=== PATIENT | female | born 1995 | race Caucasian/White ===

== ENCOUNTER → 2017-01-02 | Outpatient (CLI) | payer OTHER ==
--- NOTE | 2017-01-02 08:54 | REP ---
RIGHT HAND, FOUR VIEWS: There is no evidence of an acute fracture, dislocation or intrinsic bone disease. IMPRESSION: No fracture or dislocation. Signed by Adolfo Hansen MD 01/02/2017 10:13 A
== END ==
LOC: M WUC 08:17
PROVIDERS: ATTEND Physician Assistant Medical
DX: S60.011A Contusion of right thumb without damage to nail, initial encounter (principal); X58.XXXA Exposure to other specified factors, initial encounter; Y92.89 Other specified places as the place of occurrence of the external cause; Y93.89 Activity, other specified; Y99.8 Other external cause status

== ENCOUNTER 2017-07-18 11:14 | Emergency (ER) | payer OTHER ==
[~2017-07-18] VITALS: Ht 154.9 cm; Wt 84.1 kg
[2017-07-18 11:14] VITALS: BP 129/88
[2017-07-18] MEDS ORDERED: NEXP1IMP SC (11:29)
[2017-07-18] MEDS ORDERED: AMIT50TA (11:29)
[2017-07-18] MEDS ORDERED: DIVA500T3 (11:29)
[2017-07-18] MEDS ORDERED: SUMA6INJ16 (11:29)
[2017-07-18] MEDS ORDERED: ULTR50TA8 PO (13:25)
== END 2017-07-18 13:38 | disposition home or self-care (01) ==
LOC: M ED 11:14
DX: S06.0X0A Concussion without loss of consciousness, initial encounter (principal); W50.0XXA Accidental hit or strike by another person, initial encounter; Y92.219 Unspecified school as the place of occurrence of the external cause; Y93.45 Activity, cheerleading; Y99.9 Unspecified external cause status; G43.909 Migraine, unspecified, not intractable, without status migrainosus; Z79.899 Other long term (current) drug therapy

== ENCOUNTER 2018-07-14 14:30 | Emergency (ER) | payer OTHER | END 2018-07-14 19:24 | disposition home or self-care (01) | LOC: M ED 14:30 | DX: S83.402A Sprain of unspecified collateral ligament of left knee, initial encounter (principal); X58.XXXA Exposure to other specified factors, initial encounter; Y92.89 Other specified places as the place of occurrence of the external cause; Z79.3 Long term (current) use of hormonal contraceptives; Z88.8 Allergy status to other drugs, medicaments and biological substances | CPT/HCPCS: 73564 ==

== ENCOUNTER 2018-08-11 08:27 | Outpatient (RCR) | payer BC | END 2018-08-27 | LOC: M PT 08:27 | DX: Z47.89 Encounter for other orthopedic aftercare (principal); M25.569 Pain in unspecified knee | CPT/HCPCS: 97110 ==

== ENCOUNTER → 2018-08-15 | Outpatient (REF) | payer BC ==
[2018-08-15 17:41] LABS: HEMATOCRIT 39.4 % (36.0-47.0); HEMOGLOBIN 13.3 g/dl (12.0-15.5); MEAN CORPUSCULAR HEMOGLOBIN 29.5 pg (27.0-33.0); MEAN CORPUSCULAR HGB CONC 33.8 g/dl (32.0-36.5); MEAN CORPUSCULAR VOLUME 87.4 fl (80.0-96.0); PLATELET COUNT, AUTOMATED 263 10^3/uL (150-450); RED BLOOD COUNT 4.51 10^6/uL (4.00-5.40); RED CELL DISTRIBUTION WIDTH 12.9 % (11.5-14.5); WHITE BLOOD COUNT 6.8 10^3/uL (4.0-10.0)
[2018-08-15 18:05] LABS: INR 1.01; PROTHROMBIN TIME 13.4 SECONDS (12.1-14.4)
[2018-08-15 18:06] LABS: PARTIAL THROMBOPLASTIN TIME 40.3 SECONDS (25.4-37.6)
== END ==
LOC: M LAB REF 16:32
DX: D68.0 Von Willebrand disease (principal)
CPT/HCPCS: 85610

== ENCOUNTER → 2018-08-19 | Outpatient (CLI) | payer BC ==
[2018-08-19 15:10] LABS: PARTIAL THROMBOPLASTIN TIME 37.4 SECONDS (25.4-37.6)
== END ==
LOC: M LAB 14:23
DX: D68.0 Von Willebrand disease (principal)
CPT/HCPCS: 85730

== ENCOUNTER → 2018-08-20 | Outpatient (CLI) | payer BC | LOC: M PAIN 09:15 | DX: M54.81 Occipital neuralgia (principal); M54.2 Cervicalgia; J45.909 Unspecified asthma, uncomplicated; G43.909 Migraine, unspecified, not intractable, without status migrainosus; D68.0 Von Willebrand disease; Z79.899 Other long term (current) drug therapy; Z88.8 Allergy status to other drugs, medicaments and biological substances; Z91.038 Other insect allergy status; Z87.820 Personal history of traumatic brain injury; Z86.69 Personal history of other diseases of the nervous system and sense organs | CPT/HCPCS: G0463 ==

== ENCOUNTER 2018-08-28 13:54 | Outpatient (RCR) | payer BC | END 2018-09-26 | LOC: M PT 09-02 16:00 | DX: M25.562 Pain in left knee (principal) ==

== ENCOUNTER → 2018-09-05 | Outpatient (CLI) | payer BC ==
[~2018-09-05] MED LIST: BUPIVACAINE HCL 0.25% 10 ML VIAL As Ordered; BUPIVACAINE HCL 0.25% 30 ML VIAL As Ordered; TRIAMCINOLONE ACETONIDE SUSP 40 MG/ML VIAL (J3301) As Ordered; diazePAM 5 MG TAB As Ordered; oxyCODONE 5MG TAB As Ordered
== END ==
LOC: M PAIN 09:15
DX: G89.29 Other chronic pain (principal); M54.81 Occipital neuralgia; J45.909 Unspecified asthma, uncomplicated; G43.909 Migraine, unspecified, not intractable, without status migrainosus; D68.0 Von Willebrand disease; Z79.899 Other long term (current) drug therapy; Z88.0 Allergy status to penicillin; Z91.038 Other insect allergy status; Z87.820 Personal history of traumatic brain injury
CPT/HCPCS: J3301

== ENCOUNTER → 2018-10-16 | Outpatient (CLI) | payer BC ==
[~2018-10-16] MED LIST changes: +AMIT50TA; -BUPIVACAINE HCL 0.25% 10 ML VIAL As Ordered; -BUPIVACAINE HCL 0.25% 30 ML VIAL As Ordered; +DIVA500T94; +NEXP1IMP SC; +REGL10TA6 PO; +SUMA100T2 PO; +SUMA6INJ16; -TRIAMCINOLONE ACETONIDE SUSP 40 MG/ML VIAL (J3301) As Ordered; +ULTR50TA8 PO; +ZONI50CA3; -diazePAM 5 MG TAB As Ordered; -oxyCODONE 5MG TAB As Ordered
--- NOTE | 2018-11-12 00:24 | ECWPNPC ---
PATIENT NAME: MONET LEDEZMA : 1995 GENDER: FEMALE VISIT DATE: 10/16/2018 DISCHARGE DATE: 10/16/18 1002 VISIT LOCKED DATE TIME: PHYSICIAN: IMAN GURROLA RESOURCE: IMAN GURROLA REASON FOR APPOINTMENT 1. PROCEDURE F/U HISTORY OF PRESENT ILLNESS HISTORY OF PRESENT ILLNESS: HERE FOR POST PROCEDURE F/U.HAD RIGHT GREATER OCCIPITAL BLOCK ON 09-05-18.REPORTED SIGNIFICANT IMPROVEMENT IN PAIN FOR >2 WEEKS POST PROCEDURE.PAIN IS BEGINING TO RETURN TO BASELINE.RATING PAIN VAS 3/10.HISTORY OF CHRONIC RIGHT NECK PAIN.THIS STEMS FROM A CHEERLEADING INJURY 2 YEARS AGO.ALSO SUFFERS FROM CHRONIC MIGRAINE WHICH ESCALATED AFTER INJURY. PAIN THE PATIENT DESCRIBES THE PAIN... FALL RISK SCREENING: SCREENING :NO FALLS IN THE PAST YEAR CURRENT MEDICATIONS TAKING AMITRIPTYLINE HCL 75 MG TABLET 1 TABLET AT BEDTIME ORALLY ONCE A DAY TAKING NEXPLANON 68 MG IMPLANT LEFT ARM SUBCUTANEOUS IMPLANTED 07/2015 TAKING IMITREX 6 MG/0.5ML SOLUTION 0.5 ML NEEDED SUBCUTANEOUS NEEDED TAKING ZONISAMIDE 50 MG CAPSULE 1 CAPSULE ORALLY THREE TIMES DAILY TAKING TRAMADOL HCL 50 MG TABLET 1 TABLET NEEDED ORALLY EVERY 6 HRS TAKING ALBUTEROL SULFATE HFA 108 (90 BASE) MCG/ACT AEROSOL SOLUTION 2 PUFFS NEEDED INHALATION EVERY 6 HRS TAKING TYLENOL 325 MG TABLET 1 TABLET NEEDED ORALLY EVERY 4 HRS NOT-TAKING IBUPROFEN 800 MG TABLET 1 TABLET WITH FOOD OR MILK NEEDED ORALLY NEEDED NOT-TAKING DIAZEPAM 5 MG TABLET 1 TABLET NEEDED ORALLY TAKE 1 TAB ONE HOUR PRIOR TO TEST, AND 1 TAB ON ARRIVA MDD=2L NOT-TAKING DEPAKOTE 500 MG TABLET DELAYED RELEASE 1 TABLET ORALLY ONCE A DAY NOT-TAKING ADVAIR DISKUS 250-50 MCG/DOSE AEROSOL POWDER BREATH ACTIVATED 1 PUFF INHALATION TWICE A DAY MEDICATION LIST REVIEWED AND RECONCILED WITH THE PATIENT PAST MEDICAL HISTORY ASTHMA MIGRAINE SEES NESANDRA HAD MRI NO AURA SYNCOPAL EPISODES - STABLE COCUSSION LAST JUN VON WILLIEBRANDS ALLERGIES TORADOL: BURNING IN HEAD: SIDE EFFECTS SPIDER BITES: LOCAL SWELLING: SIDE EFFECTS SURGICAL HISTORY REMOVAL EXTRA DIGITS EACH HAND AGE 3 MO T&A AGE 7 WISDOM TEETH REMOVED 2015 LEFT KNEE BONE FRAGMENT REMOVED 08/2018 SOCIAL HISTORY GENERAL: TOBACCO USE ARE YOU A:NONSMOKER NEVER SMOKER BMI CARE GOAL FOLLOW-UP ABOVE NORMAL BMI FOLLOW-UPGIVING ENCOURAGEMENT TO EXERCISE ALCOHOL SCREENING DID YOU HAVE A DRINK CONTAINING ALCOHOL IN THE PAST YEAR?YES HOW OFTEN DID YOU HAVE A DRINK CONTAINING ALCOHOL IN THE PAST YEAR?TWO TO FOUR TIMES A MONTH (2 POINTS) HOW MANY DRINKS DID YOU HAVE ON A TYPICAL DAY WHEN YOU WERE DRINKING IN THE PAST YEAR?1 OR 2 (0 POINTS) HOW OFTEN DID YOU HAVE SIX OR MORE DRINKS ON ONE OCCASION IN THE PAST YEAR?NEVER (0 POINTS) POINTS2 INTERPRETATIONNEGATIVE RECREATIONAL DRUG USE DRUG USE?NO CAFFEINE CAFFEINE USE?YES HOW OFTEN AND HOW MUCH? 1 SODA 12 OZ LANGUAGE SOUTH AFR[place]. LEARNING BARRIERS / SPECIAL NEEDS CHANGE FROM LAST VISIT?NO BARRIERS TO LEARNING?NO HEARING IMPAIRED?NO VISION IMPAIRED?YES :CORRECTIVE LENSES COGNITIVELY IMPAIRED?NO READINESS TO LEARN?YES LEARNING PREFERENCES?NO LEARNING CAPABILITIES PRESENT?YES EMOTIONAL BARRIERS?NO SPECIAL DEVICES?NO OPERATIONS ASSOCIATE NEEDED?NO MARITAL STATUS: SINGLE. OTHERS AT HOME: FATHER, MOTHER. PAIN CLINIC PFS, CLERGY, PUBLIC HEALTH REFERRALS PFS REFERRAL NEEDED?NO CLERGY REFERRAL NEEDED?NO PUBLIC HEALTH REFERRAL NEEDED?NO HAS THE PATIENT BEEN EDUCATED REGARDING HIS/HER PLAN OF CARE?YES HAS THE PATIENT BEEN EDUCATED REGARDING PAIN, THE RISK FOR PAIN, THE IMPORTANCE OF EFFECTIVE PAIN MANAGEMENT, AND THE PAIN ASSESSMENT PROCESS?YES ADVANCE DIRECTIVE ADVANCE DIRECTIVE DISCUSSED WITH PATIENT:YES MACHO LAUVIRIDIANATORSTEN [phone] HOSPITALIZATION/MAJOR DIAGNOSTIC PROCEDURE DEHYDRATION 2002 ASTHMA 2005 REVIEW OF SYSTEMS REVIEWED BY: PROVIDER: IMAN GARZA . CONSTITUTIONAL: ANY CHANGE IN YOUR MEDICAL CONDITION? YES, NEGATIVE WORK UP FOR [place] DISEASE . CHILLS NO . FEVER NO . INFECTION: DO YOU HAVE NEW INFECTIONS? NO . DO YOU HAVE HISTORY OF MRSA? NO . MUSCULOSKELETAL: ANY NEW PATTERNS OF PAIN OR NUMBNESS? NO . GASTROENTEROLOGY: ANY NEW CHANGE IN BOWEL CONTROL? NO . GENITOURINARY: ANY NEW CHANGE IN BLADDER CONTROL? NO . IS THERE A CHANCE YOU COULD BE ? NO . HEMATOLOGY/LYMPH: DO YOU TAKE ANY BLOOD THINNERS? (FOR EXAMPLE- COUMADIN, PLAVIX, AGGRENOX, PLATEL, PRADAXA, OR XARELTO) NO . WHEN WAS YOUR LAST DOSE? DATE: TIME: . NEUROLOGY: HAVE YOU FALLEN IN THE PAST 6 MONTHS? YES, LAST WEEK SLIPPED AND FELL ON ICE, PT DENIES INJURIES . ANY NEW EXTREMITY NUMBNESS OR WEAKNESS? NO . CARDIOLOGY: DO YOU HAVE A PACEMAKER OR DEFIBRILLATOR? NO . RESPIRATORY: HAVE YOU BEEN SICK IN THE PAST WEEK? NO . FEVER NO . FLU LIKE SYMPTOMS? NO . COUGH NO . INTEGUMENTARY: DO YOU HAVE ANY RASHES OR OPEN SORES? NO . ALLERGIC/IMMUNO: ARE YOU ALLERGIC TO SHELLFISH OR IV DYE? NO . ANY NEW ALLERGIES? NO . PSYCHIATRIC: DO YOU HAVE THOUGHTS OF HURTING YOURSELF OR SOMEONE ELSE? NO . ARE YOU ABUSED, NEGLECTED, OR IN AN UNSAFE ENVIRONMENT? NO . ENDOCRINOLOGY: ARE YOU DIABETIC? NO . OTHER: DO YOU NEED ANY PRESCRIPTIONS? NO . IF YES, PLEASE LIST: ____ . ANY NEW PROBLEMS WITH YOUR MEDICATIONS? NO . WHEN DID YOU LAST EAT? ____ . WHEN DID YOU LAST DRINK? ____ . WHAT DID YOU LAST DRINK? ____ . NAME OF PERSON DRIVING YOU HOME? ____ . DO YOU HAVE ANY OTHER QUESTIONS OR CONCERNS NO . VITAL SIGNS WT 192 LBS, HT 62 IN, BMI 35.11 INDEX, BP 122/81 MM HG, HR 88 /MIN, RR 16 /MIN, TEMP 98.7 F, OXYGEN SAT % 98, REVIEWED BY: EM. EXAMINATION GENERAL EXAMINATION: GENERAL APPEARANCE:COLOR PALE. PSYCHALERT , ORIENTED X 3 , APPROPRIATE MOOD AND AFFECT , TALKATIVE. GOOD HISTORIAN. HEENT:NORMOCEPHALIC. NO LYMPHADENOPATHY, NO THYROMEGLY. LUNGS:CLEAR TO AUSCULTATION BILATERALLY. HEART:HEART RATE REGULAR, NORMAL S1S2, NO MURMURS, CLICK OR RUBS. MUSCULOSKELETAL:MUSCLE STRENGTH TESTING 5/5 BILATERAL UPPER AND LOWER EXTREMITIES. POINT TENDERNESS OVER RIGHT > LEFT OCCIPITAL NOTCH AND OVER THE RIGHT OCCIPUT TO THE VERTEX. SOME DECREASE IN ROM WITH NECK ROTATION, FLEXION. . NEUROLOGIC EXAM:CN'S II-XII GROSSLY INTACT.. 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 PROCEDURE CODES FA211 ESTABILISHED PATIENT [facility] FACILITY CHARGE DISPOSITION & COMMUNICATION FOLLOW UP POST (REASON: RIGHT OCCIPITAL BLOCK) ELECTRONICALLY SIGNED BY KAYLA WYMAN ON 11/11/2018 AT 08:50 AM EST DISCLAIMER : THIS IS A VISIT SUMMARY EXTRACTED FROM THE [employer] CHART. IT IS NOT A COPY OF THE [employer] PROGRESS NOTE. JUAREZ
== END ==
LOC: M PAIN 11:30
PROVIDERS: ATTEND Nurse Practitioner Family
DX: M54.81 Occipital neuralgia (principal); J45.909 Unspecified asthma, uncomplicated; G43.909 Migraine, unspecified, not intractable, without status migrainosus; E66.01 Morbid (severe) obesity due to excess calories; Z68.35 Body mass index [BMI] 35.0-35.9, adult; Z79.899 Other long term (current) drug therapy; Z88.8 Allergy status to other drugs, medicaments and biological substances; Z91.038 Other insect allergy status

== ENCOUNTER → 2018-10-30 | Outpatient (CLI) | payer BC ==
[~2018-10-30] MED LIST changes: +BUPIVACAINE HCL 0.25% 10 ML VIAL As Ordered ONE; +BUPIVACAINE HCL 0.25% 30 ML VIAL As Ordered ONE; +TRIAMCINOLONE ACETONIDE SUSP 40 MG/ML VIAL (J3301) As Ordered ONE; +diazePAM 5 MG TAB As Ordered ONE; +oxyCODONE 5MG TAB As Ordered ONE
--- NOTE | 2018-11-15 23:24 | ECWPNPC ---
PATIENT NAME: MONET LEDEZMA : 1995 GENDER: FEMALE VISIT DATE: 10/30/2018 DISCHARGE DATE: 10/30/18 1731 VISIT LOCKED DATE TIME: PHYSICIAN: MADDI RICHARD MD RESOURCE: MADDI RICHARD MD REASON FOR APPOINTMENT 1. RIGHT OCCIPITAL BLOCK HISTORY OF PRESENT ILLNESS HISTORY OF PRESENT ILLNESS: PAIN THE PATIENT DESCRIBES THE PAIN... FALL RISK SCREENING: SCREENING :NO FALLS IN THE PAST YEAR CURRENT MEDICATIONS TAKING AMITRIPTYLINE HCL 75 MG TABLET 1 TABLET AT BEDTIME ORALLY ONCE A DAY, NOTES: 10/29/18 2100 TAKING NEXPLANON 68 MG IMPLANT LEFT ARM SUBCUTANEOUS IMPLANTED 07/2015, NOTES: N/A TAKING IMITREX 6 MG/0.5ML SOLUTION 0.5 ML NEEDED SUBCUTANEOUS NEEDED, NOTES: NONE LATELY TAKING ZONISAMIDE 50 MG CAPSULE 1 CAPSULE ORALLY THREE TIMES DAILY, NOTES: 10/30/18 0800 TAKING TRAMADOL HCL 50 MG TABLET 1 TABLET NEEDED ORALLY EVERY 6 HRS, NOTES: 10/26/18 TAKING ALBUTEROL SULFATE HFA 108 (90 BASE) MCG/ACT AEROSOL SOLUTION 2 PUFFS NEEDED INHALATION EVERY 6 HRS, NOTES: LAST MONTH TAKING TYLENOL 325 MG TABLET 1 TABLET NEEDED ORALLY EVERY 4 HRS, NOTES: 10/27/18 NOT-TAKING IBUPROFEN 800 MG TABLET 1 TABLET WITH FOOD OR MILK NEEDED ORALLY NEEDED NOT-TAKING DIAZEPAM 5 MG TABLET 1 TABLET NEEDED ORALLY TAKE 1 TAB ONE HOUR PRIOR TO TEST, AND 1 TAB ON ARRIVA MDD=2L NOT-TAKING DEPAKOTE 500 MG TABLET DELAYED RELEASE 1 TABLET ORALLY ONCE A DAY NOT-TAKING ADVAIR DISKUS 250-50 MCG/DOSE AEROSOL POWDER BREATH ACTIVATED 1 PUFF INHALATION TWICE A DAY MEDICATION LIST REVIEWED AND RECONCILED WITH THE PATIENT PAST MEDICAL HISTORY ASTHMA MIGRAINE SEES VINCENT HAD MRI NO AURA SYNCOPAL EPISODES - STABLE COCUSSION LAST JUN VON WILLIEBRANDS ALLERGIES TORADOL: BURNING IN HEAD: SIDE EFFECTS SPIDER BITES: LOCAL SWELLING: SIDE EFFECTS SURGICAL HISTORY REMOVAL EXTRA DIGITS EACH HAND AGE 3 MO T&A AGE 7 WISDOM TEETH REMOVED 2015 LEFT KNEE BONE FRAGMENT REMOVED 08/2018 SOCIAL HISTORY GENERAL: TOBACCO USE ARE YOU A:NONSMOKER NEVER SMOKER BMI CARE GOAL FOLLOW-UP ABOVE NORMAL BMI FOLLOW-UPGIVING ENCOURAGEMENT TO EXERCISE ALCOHOL SCREENING DID YOU HAVE A DRINK CONTAINING ALCOHOL IN THE PAST YEAR?YES HOW OFTEN DID YOU HAVE A DRINK CONTAINING ALCOHOL IN THE PAST YEAR?TWO TO FOUR TIMES A MONTH (2 POINTS) HOW MANY DRINKS DID YOU HAVE ON A TYPICAL DAY WHEN YOU WERE DRINKING IN THE PAST YEAR?1 OR 2 (0 POINTS) HOW OFTEN DID YOU HAVE SIX OR MORE DRINKS ON ONE OCCASION IN THE PAST YEAR?NEVER (0 POINTS) POINTS2 INTERPRETATIONNEGATIVE RECREATIONAL DRUG USE DRUG USE?NO CAFFEINE CAFFEINE USE?YES HOW OFTEN AND HOW MUCH? 1 SODA 12 OZ LANGUAGE ISRAELI. LEARNING BARRIERS / SPECIAL NEEDS CHANGE FROM LAST VISIT?NO BARRIERS TO LEARNING?NO HEARING IMPAIRED?NO VISION IMPAIRED?YES :CORRECTIVE LENSES COGNITIVELY IMPAIRED?NO READINESS TO LEARN?YES LEARNING PREFERENCES?NO LEARNING CAPABILITIES PRESENT?YES EMOTIONAL BARRIERS?NO SPECIAL DEVICES?NO MANAGER STEEL NEEDED?NO MARITAL STATUS: SINGLE. OTHERS AT HOME: FATHER, MOTHER. PAIN CLINIC PFS, CLERGY, PUBLIC HEALTH REFERRALS PFS REFERRAL NEEDED?NO CLERGY REFERRAL NEEDED?NO PUBLIC HEALTH REFERRAL NEEDED?NO HAS THE PATIENT BEEN EDUCATED REGARDING HIS/HER PLAN OF CARE?YES HAS THE PATIENT BEEN EDUCATED REGARDING PAIN, THE RISK FOR PAIN, THE IMPORTANCE OF EFFECTIVE PAIN MANAGEMENT, AND THE PAIN ASSESSMENT PROCESS?YES ADVANCE DIRECTIVE ADVANCE DIRECTIVE DISCUSSED WITH PATIENT:YES MACHO SHRESTHARENETTATORSTEN [phone] HOSPITALIZATION/MAJOR DIAGNOSTIC PROCEDURE DEHYDRATION 2002 ASTHMA 2005 REVIEW OF SYSTEMS REVIEWED BY: PROVIDER: . CONSTITUTIONAL: ANY CHANGE IN YOUR MEDICAL CONDITION? NO . CHILLS NO . FEVER NO . INFECTION: DO YOU HAVE NEW INFECTIONS? NO . DO YOU HAVE HISTORY OF MRSA? NO . MUSCULOSKELETAL: ANY NEW PATTERNS OF PAIN OR NUMBNESS? NO . GASTROENTEROLOGY: ANY NEW CHANGE IN BOWEL CONTROL? NO . GENITOURINARY: ANY NEW CHANGE IN BLADDER CONTROL? NO . IS THERE A CHANCE YOU COULD BE ? NO . HEMATOLOGY/LYMPH: DO YOU TAKE ANY BLOOD THINNERS? (FOR EXAMPLE- COUMADIN, PLAVIX, AGGRENOX, PLATEL, PRADAXA, OR XARELTO) NO . WHEN WAS YOUR LAST DOSE? DATE: TIME: . NEUROLOGY: HAVE YOU FALLEN IN THE PAST 6 MONTHS? NO . ANY NEW EXTREMITY NUMBNESS OR WEAKNESS? NO . CARDIOLOGY: DO YOU HAVE A PACEMAKER OR DEFIBRILLATOR? NO . RESPIRATORY: HAVE YOU BEEN SICK IN THE PAST WEEK? NO . FEVER NO . FLU LIKE SYMPTOMS? NO . COUGH NO . INTEGUMENTARY: DO YOU HAVE ANY RASHES OR OPEN SORES? NO . ALLERGIC/IMMUNO: ARE YOU ALLERGIC TO SHELLFISH OR IV DYE? NO . ANY NEW ALLERGIES? NO . PSYCHIATRIC: DO YOU HAVE THOUGHTS OF HURTING YOURSELF OR SOMEONE ELSE? NO . ARE YOU ABUSED, NEGLECTED, OR IN AN UNSAFE ENVIRONMENT? NO . ENDOCRINOLOGY: ARE YOU DIABETIC? NO . OTHER: DO YOU NEED ANY PRESCRIPTIONS? NO . IF YES, PLEASE LIST: ____ . ANY NEW PROBLEMS WITH YOUR MEDICATIONS? NO . WHEN DID YOU LAST EAT? 10/29/18 2100 . WHEN DID YOU LAST DRINK? 10/30/18 1200 . WHAT DID YOU LAST DRINK? WATER . NAME OF PERSON DRIVING YOU HOME? ALHAJI . DO YOU HAVE ANY OTHER QUESTIONS OR CONCERNS NO . VITAL SIGNS WT 192 LBS, HT 62 IN, BMI 35.11 INDEX, BP 122/84 MM HG, HR 82 /MIN, RR 16 /MIN, TEMP 97.8 F, OXYGEN SAT % 99%, NA INITIALS SC 13:55, REVIEWED BY: EM. 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 POST PROCEDURE DIAGNOSIS OCCIPITAL NEURALGIA. PROCEDURE RIGHT GREATER AND LESSER OCCIPITAL NERVE BLOCK. SURGEON DR. MADDI RICHARD CONSULTING PROJECT DIRECTOR NONE ANESTHESIA LOCAL PRE PROCEDURE NOTE 23 YEAR-OLD PATIENT WITH HISTORY OF CHRONIC OCCIPITAL PAIN. THE PAIN IS LOCATED OVER THE OCCIPITAL AREA WITH RADIATION TOWARDS THE TEMPORAL AREA AND ALSO TO THE PARIETAL AREA OF THE CRANIUM. I EVALUATED THE PATIENT AND REVIEWED THE CHART. I WENT OVER THE RISKS, ALTERNATIVES, AND BENEFITS ASSOCIATED WITH THIS PROCEDURE. THE PATIENT WOULD LIKE TO PROCEED AND GAVE CONSENT TO PERFORM THE PROCEDURE. THE PATIENT DENIES UNEXPLAINABLE WEIGHT LOSS, FEVER, CHILLS, OR NEW CHANGES IN URINARY OR BOWEL CONTROL. DESCRIPTION OF PROCEDURE THE PATIENT WAS BROUGHT TO THE PROCEDURE ROOM AND PLACED IN THE SITTING POSITION. THE RIGHT OCCIPITAL AREA WAS CLEANED WITH ALCOHOL. THE PROCEDURE WAS DONE USING STERILE TECHNIQUES. I CHECKED LATERALITY AND THE LEVEL WHERE THE PROCEDURE WAS GOING TO BE PERFORMED WITH THE PATIENT AND THE SUPPORTING STAFF AT THE MOMENT OF THE TIME OUT IN THE PROCEDURE ROOM. USING A 25-GAUGE NEEDLE, THE OCCIPITAL NERVES, BOTH THE GREATER AND THE LESSER WERE INJECTED AT THE RIGHT SIDE AT THE NUCHAL LINE, THE GREATER 1-INCH LATERAL OF MIDLINE AND THE LESSER 1-1/2 INCH LATERAL OF THE MIDLINE. I USED A TOTAL OF 10 ML OF BUPIVACAINE 0.25% WITH KENALOG 10 MG AT EACH NERVE. THERE WAS NO EVIDENCE OF BLOOD, PARESTHESIA OR CEREBROSPINAL FLUID DURING THE PROCEDURE. THE PATIENT WAS SENT TO THE RECOVERY ROOM. THE PATIENT WAS MOVING THE EXTREMITIES AND DOING WELL. THERE WAS NO COMPLICATION DURING THE PROCEDURE. POST PROCEDURE NOTE THE PATIENT WILL BE SEEN IN A FOLLOW UP IN THE NEXT FEW WEEKS. INSTRUCTIONS WERE GIVEN, QUESTIONS WERE ANSWERED, AND THE PATIENT EXPRESSED UNDERSTANDING AND AGREED WITH THE PLAN. I, FREDRICK DAMON, DOCUMENTED THE ABOVE INFORMATION ACTING A SCRIBE FOR DR. RICHARD. I HAVE REVIEWED THE ABOVE DOCUMENT, WRITTEN BY FREDRICK COTE AND I VERIFY THAT IT IS ACCURATE. PROCEDURE CODES 20320 N BLOCK INJ OCCIPITAL, UNITS: 2.00 , MODIFIERS: RT DISPOSITION & COMMUNICATION FOLLOW UP 3 WEEKS ELECTRONICALLY SIGNED BY MADDI RICHARD MD, ON 11/15/2018 AT 09:07 PM EST DISCLAIMER : THIS IS A VISIT SUMMARY EXTRACTED FROM THE [employer] CHART. IT IS NOT A COPY OF THE [employer] PROGRESS NOTE. JUAREZ
== END ==
LOC: M PAIN 16:15
PROVIDERS: ATTEND Anesthesiology
DX: M54.81 Occipital neuralgia (principal); J45.909 Unspecified asthma, uncomplicated; G43.909 Migraine, unspecified, not intractable, without status migrainosus; D68.0 Von Willebrand disease; E66.01 Morbid (severe) obesity due to excess calories; Z68.35 Body mass index [BMI] 35.0-35.9, adult; Z79.899 Other long term (current) drug therapy; Z88.8 Allergy status to other drugs, medicaments and biological substances; Z91.038 Other insect allergy status; Z86.79 Personal history of other diseases of the circulatory system
CPT/HCPCS: 64405; J3301

== ENCOUNTER → 2018-11-25 | Outpatient (CLI) | payer BC ==
[~2018-11-25] MED LIST changes: -BUPIVACAINE HCL 0.25% 10 ML VIAL As Ordered ONE; -BUPIVACAINE HCL 0.25% 30 ML VIAL As Ordered ONE; -TRIAMCINOLONE ACETONIDE SUSP 40 MG/ML VIAL (J3301) As Ordered ONE; -diazePAM 5 MG TAB As Ordered ONE; -oxyCODONE 5MG TAB As Ordered ONE
--- NOTE | 2018-12-07 23:51 | ECWPNPC ---
PATIENT NAME: MONET LEDEZMA : 1995 GENDER: FEMALE VISIT DATE: 11/25/2018 DISCHARGE DATE: 11/25/18 1040 VISIT LOCKED DATE TIME: PHYSICIAN: IMAN GURROLA RESOURCE: IMAN GURROLA REASON FOR APPOINTMENT 1. POST PROC HISTORY OF PRESENT ILLNESS HISTORY OF PRESENT ILLNESS: HERE FOR POST PROCEDURE F/U.HAD RIGHT GREATER AND LESSER OCCIPITAL NERVE BLOCK ON 10/30/18.REPORTING ONLY 1 WEEK IMPROVEMENT POST PROCEDURE.RATING RIGHT NECK PAIN 5/10 VAS.REPORTS A FALL INJURY LAST WEEK THAT AGGREVATED RIGHT NECK PAIN.HAS BEEN USING CYCLOBENZAPRINE 10MG 1/2 TO 1 TAB PRN FOR SEVERE PAIN WITH RELIEF. PAIN THE PATIENT DESCRIBES THE PAIN... FALL RISK SCREENING: SCREENING :NO FALLS IN THE PAST YEAR CURRENT MEDICATIONS TAKING AMITRIPTYLINE HCL 75 MG TABLET 1 TABLET AT BEDTIME ORALLY ONCE A DAY TAKING NEXPLANON 68 MG IMPLANT LEFT ARM SUBCUTANEOUS IMPLANTED 07/2015, NOTES: N/A TAKING IMITREX 6 MG/0.5ML SOLUTION 0.5 ML NEEDED SUBCUTANEOUS NEEDED TAKING ZONISAMIDE 50 MG CAPSULE 1 CAPSULE ORALLY THREE TIMES DAILY TAKING TRAMADOL HCL 50 MG TABLET 1 TABLET NEEDED ORALLY EVERY 6 HRS TAKING ALBUTEROL SULFATE HFA 108 (90 BASE) MCG/ACT AEROSOL SOLUTION 2 PUFFS NEEDED INHALATION EVERY 6 HRS TAKING TYLENOL 325 MG TABLET 1 TABLET NEEDED ORALLY EVERY 4 HRS TAKING CYCLOBENZAPRINE HCL 10 MG TABLET 1/2-1 TAB ORALLY Q6H PRN PAIN NOT-TAKING IBUPROFEN 800 MG TABLET 1 TABLET WITH FOOD OR MILK NEEDED ORALLY NEEDED NOT-TAKING DIAZEPAM 5 MG TABLET 1 TABLET NEEDED ORALLY TAKE 1 TAB ONE HOUR PRIOR TO TEST, AND 1 TAB ON ARRIVA MDD=2L NOT-TAKING DEPAKOTE 500 MG TABLET DELAYED RELEASE 1 TABLET ORALLY ONCE A DAY NOT-TAKING ADVAIR DISKUS 250-50 MCG/DOSE AEROSOL POWDER BREATH ACTIVATED 1 PUFF INHALATION TWICE A DAY MEDICATION LIST REVIEWED AND RECONCILED WITH THE PATIENT PAST MEDICAL HISTORY ASTHMA MIGRAINE SEES VINCENT HAD MRI NO AURA SYNCOPAL EPISODES - STABLE COCUSSION LAST JUN VON WILLIEBRANDS ALLERGIES TORADOL: BURNING IN HEAD: SIDE EFFECTS SPIDER BITES: LOCAL SWELLING: SIDE EFFECTS SURGICAL HISTORY REMOVAL EXTRA DIGITS EACH HAND AGE 3 MO T&A AGE 7 WISDOM TEETH REMOVED 2015 LEFT KNEE BONE FRAGMENT REMOVED 08/2018 FAMILY HISTORY FATHER: ALIVE 60 YRS, HEMOPHLIIA MOTHER: ALIVE 61 YRS, HTN, DIAGNOSED WITH HYPERTENSION SIBLINGS: BROTHERS ALCOHOLISM 2 BROTHER(S) , 1 SISTER(S) - HEALTHY. SOCIAL HISTORY GENERAL: TOBACCO USE ARE YOU A:NONSMOKER NEVER SMOKER BMI CARE GOAL FOLLOW-UP ABOVE NORMAL BMI FOLLOW-UPGIVING ENCOURAGEMENT TO EXERCISE ALCOHOL SCREENING DID YOU HAVE A DRINK CONTAINING ALCOHOL IN THE PAST YEAR?YES HOW OFTEN DID YOU HAVE A DRINK CONTAINING ALCOHOL IN THE PAST YEAR?TWO TO FOUR TIMES A MONTH (2 POINTS) HOW MANY DRINKS DID YOU HAVE ON A TYPICAL DAY WHEN YOU WERE DRINKING IN THE PAST YEAR?1 OR 2 (0 POINTS) HOW OFTEN DID YOU HAVE SIX OR MORE DRINKS ON ONE OCCASION IN THE PAST YEAR?NEVER (0 POINTS) POINTS2 INTERPRETATIONNEGATIVE RECREATIONAL DRUG USE DRUG USE?NO CAFFEINE CAFFEINE USE?YES HOW OFTEN AND HOW MUCH? 1 SODA 12 OZ LANGUAGE GAMBIAN. LEARNING BARRIERS / SPECIAL NEEDS CHANGE FROM LAST VISIT?NO BARRIERS TO LEARNING?NO HEARING IMPAIRED?NO VISION IMPAIRED?YES :CORRECTIVE LENSES COGNITIVELY IMPAIRED?NO READINESS TO LEARN?YES LEARNING PREFERENCES?NO LEARNING CAPABILITIES PRESENT?YES EMOTIONAL BARRIERS?NO SPECIAL DEVICES?NO FUEL MANAGEMENT HANDLER NEEDED?NO MARITAL STATUS: SINGLE. OTHERS AT HOME: FATHER, MOTHER. PAIN CLINIC PFS, CLERGY, PUBLIC HEALTH REFERRALS PFS REFERRAL NEEDED?NO CLERGY REFERRAL NEEDED?NO PUBLIC HEALTH REFERRAL NEEDED?NO HAS THE PATIENT BEEN EDUCATED REGARDING HIS/HER PLAN OF CARE?YES HAS THE PATIENT BEEN EDUCATED REGARDING PAIN, THE RISK FOR PAIN, THE IMPORTANCE OF EFFECTIVE PAIN MANAGEMENT, AND THE PAIN ASSESSMENT PROCESS?YES ADVANCE DIRECTIVE ADVANCE DIRECTIVE DISCUSSED WITH PATIENT:YES MACHO AGUIRRE [phone] REVIEWED WITH PATIENT 11/25/18 0935 . HOSPITALIZATION/MAJOR DIAGNOSTIC PROCEDURE DEHYDRATION 2001 ASTHMA 2004 REVIEW OF SYSTEMS REVIEWED BY: PROVIDER: IAMN GARZA . CONSTITUTIONAL: ANY CHANGE IN YOUR MEDICAL CONDITION? NO . CHILLS NO . FEVER NO . INFECTION: DO YOU HAVE NEW INFECTIONS? NO . DO YOU HAVE HISTORY OF MRSA? NO . MUSCULOSKELETAL: ANY NEW PATTERNS OF PAIN OR NUMBNESS? YES, STATES INCREASE IN PAIN AND FREQUENCY OF MIGRAINES . GASTROENTEROLOGY: ANY NEW CHANGE IN BOWEL CONTROL? NO . GENITOURINARY: ANY NEW CHANGE IN BLADDER CONTROL? NO . IS THERE A CHANCE YOU COULD BE ? NO . HEMATOLOGY/LYMPH: DO YOU TAKE ANY BLOOD THINNERS? (FOR EXAMPLE- COUMADIN, PLAVIX, AGGRENOX, PLATEL, PRADAXA, OR XARELTO) NO . WHEN WAS YOUR LAST DOSE? DATE: TIME: . NEUROLOGY: HAVE YOU FALLEN IN THE PAST 12 MONTHS? YES, SLIP ON ICE LAST SATURDAY, BACK AND NECK HURTING MORE, NO ED VISIT, NO NEW IMAGING . ANY NEW EXTREMITY NUMBNESS OR WEAKNESS? NO . CARDIOLOGY: DO YOU HAVE A PACEMAKER OR DEFIBRILLATOR? NO . RESPIRATORY: HAVE YOU BEEN SICK IN THE PAST WEEK? NO . FEVER NO . FLU LIKE SYMPTOMS? NO . COUGH NO . INTEGUMENTARY: DO YOU HAVE ANY RASHES OR OPEN SORES? NO . ALLERGIC/IMMUNO: ARE YOU ALLERGIC TO IV DYE? NO . ANY NEW ALLERGIES? NO . PSYCHIATRIC: DO YOU HAVE THOUGHTS OF HURTING YOURSELF OR SOMEONE ELSE? NO . ARE YOU ABUSED, NEGLECTED, OR IN AN UNSAFE ENVIRONMENT? NO . ENDOCRINOLOGY: ARE YOU DIABETIC? NO . OTHER: DO YOU NEED ANY PRESCRIPTIONS? NO . IF YES, PLEASE LIST: ____ . ANY NEW PROBLEMS WITH YOUR MEDICATIONS? NO . WHEN DID YOU LAST EAT? ____ . WHEN DID YOU LAST DRINK? ____ . WHAT DID YOU LAST DRINK? ____ . NAME OF PERSON DRIVING YOU HOME? ____ . DO YOU HAVE ANY OTHER QUESTIONS OR CONCERNS NO . VITAL SIGNS WT 192 LBS, HT 62 IN, BMI 35.11 INDEX, BP 130/76 MM HG, HR 78 /MIN, RR 16 /MIN, TEMP 97.5 F, OXYGEN SAT % 100%, SAFE IN ENV? (Y/N) YES, NA INITIALS OH 09:41, REVIEWED BY: NICOLE. EXAMINATION GENERAL EXAMINATION: GENERAL APPEARANCE:COLOR PALE. PSYCHALERT , ORIENTED X 3 , APPROPRIATE MOOD AND AFFECT , TALKATIVE. GOOD HISTORIAN. MUSCULOSKELETAL:MUSCLE STRENGTH TESTING 5/5 BILATERAL UPPER AND LOWER EXTREMITIES. POINT TENDERNESS OVER RIGHT OCCIPITAL NOTCH AND OVER THE RIGHT OCCIPITAL NERVE. . 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 PREVENTIVE MEDICINE PAIN CLINIC TEACHING: PROCEDURE TEACHING REVIEWED OCCIPITAL BLOCK PROCEDURE INFORMATION WITH PATIENT. ALSO REVIEWED PRE-PROCEDURE INSTRUCTIONS. PATIENT VERBALIZED AN UNDERSTANDING. MELISSA TAFOYA 11/25/2018 4:49:23 PM > . PROCEDURE CODES FA211 ESTABILISHED PATIENT [facility] CHARGE DISPOSITION & COMMUNICATION FOLLOW UP POST (REASON: RIGHT GREATER OCCIPITAL BLOCK) ELECTRONICALLY SIGNED BY KAYLA WYMAN ON 12/07/2018 AT 02:37 PM EST DISCLAIMER : THIS IS A VISIT SUMMARY EXTRACTED FROM THE [employer] CHART. IT IS NOT A COPY OF THE [employer] PROGRESS NOTE. JUAREZ
== END ==
LOC: M PAIN 10:00
PROVIDERS: ATTEND Nurse Practitioner Family
DX: M54.81 Occipital neuralgia (principal); J45.909 Unspecified asthma, uncomplicated; G43.909 Migraine, unspecified, not intractable, without status migrainosus; D68.0 Von Willebrand disease; Z79.899 Other long term (current) drug therapy; Z88.8 Allergy status to other drugs, medicaments and biological substances; Z91.038 Other insect allergy status

== ENCOUNTER → 2018-12-03 | Outpatient (CLI) | payer BC ==
[~2018-12-03] MED LIST changes: +BUPIVACAINE HCL 0.25% 10 ML VIAL As Ordered ONE; +BUPIVACAINE HCL 0.25% 30 ML VIAL As Ordered ONE; +TRIAMCINOLONE ACETONIDE SUSP 40 MG/ML VIAL (J3301) As Ordered ONE; +diazePAM 5 MG TAB As Ordered ONE; +oxyCODONE 5MG TAB As Ordered ONE
--- NOTE | 2018-12-13 23:26 | ECWPNPC ---
PATIENT NAME: MONET LEDEZMA : 1995 GENDER: FEMALE VISIT DATE: 12/03/2018 DISCHARGE DATE: 12/03/18 1619 VISIT LOCKED DATE TIME: PHYSICIAN: MADDI RICHARD MD RESOURCE: MADDI RICHARD MD REASON FOR APPOINTMENT 1. OCCIPITAL HISTORY OF PRESENT ILLNESS HISTORY OF PRESENT ILLNESS: PAIN THE PATIENT DESCRIBES THE PAIN... FALL RISK SCREENING: SCREENING :NO FALLS IN THE PAST YEAR CURRENT MEDICATIONS TAKING AMITRIPTYLINE HCL 75 MG TABLET 1 TABLET AT BEDTIME ORALLY ONCE A DAY, NOTES: 12/02/18 2300 TAKING NEXPLANON 68 MG IMPLANT LEFT ARM SUBCUTANEOUS IMPLANTED 07/2015, NOTES: N/A TAKING IMITREX 6 MG/0.5ML SOLUTION 0.5 ML NEEDED SUBCUTANEOUS NEEDED, NOTES: NONE RECENTLY TAKING ZONISAMIDE 50 MG CAPSULE 1 CAPSULE ORALLY THREE TIMES DAILY, NOTES: 12/03/18 0730 TAKING TRAMADOL HCL 50 MG TABLET 1 TABLET NEEDED ORALLY EVERY 6 HRS, NOTES: 11/30/18 TAKING ALBUTEROL SULFATE HFA 108 (90 BASE) MCG/ACT AEROSOL SOLUTION 2 PUFFS NEEDED INHALATION EVERY 6 HRS, NOTES: MONTHS AGO TAKING CYCLOBENZAPRINE HCL 10 MG TABLET 1/2-1 TAB ORALLY Q6H PRN PAIN, NOTES: 2 WEEKS AGO TAKING ARTHRITIS PAIN 650 MG TABLET EXTENDED RELEASE 2 TABLETS NEEDED ORALLY EVERY 8 HRS, NOTES: 12/01/18 NOT-TAKING TYLENOL 325 MG TABLET 1 TABLET NEEDED ORALLY EVERY 4 HRS NOT-TAKING IBUPROFEN 800 MG TABLET 1 TABLET WITH FOOD OR MILK NEEDED ORALLY NEEDED NOT-TAKING DIAZEPAM 5 MG TABLET 1 TABLET NEEDED ORALLY TAKE 1 TAB ONE HOUR PRIOR TO TEST, AND 1 TAB ON ARRIVA MDD=2L NOT-TAKING DEPAKOTE 500 MG TABLET DELAYED RELEASE 1 TABLET ORALLY ONCE A DAY NOT-TAKING ADVAIR DISKUS 250-50 MCG/DOSE AEROSOL POWDER BREATH ACTIVATED 1 PUFF INHALATION TWICE A DAY MEDICATION LIST REVIEWED AND RECONCILED WITH THE PATIENT PAST MEDICAL HISTORY ASTHMA MIGRAINE SEES VINCENT HAD MRI NO AURA SYNCOPAL EPISODES - STABLE CONCUSSION LAST JUN 2017 HEMOPHILIA A CARRIER ONLY DISLOCATED KNEE LEFT 06/2018 ALLERGIES TORADOL: BURNING IN HEAD: SIDE EFFECTS SPIDER BITES: LOCAL SWELLING: SIDE EFFECTS SURGICAL HISTORY REMOVAL EXTRA DIGITS EACH HAND AGE 3 MO T&A AGE 7 WISDOM TEETH REMOVED 2015 LEFT KNEE BONE FRAGMENT REMOVED 08/2018 FAMILY HISTORY FATHER: ALIVE 60 YRS, HEMOPHILIA MOTHER: ALIVE 61 YRS, HTN, BREAST CANCER, DIAGNOSED WITH HYPERTENSION, CANCER SIBLINGS: BROTHERS ALCOHOLISM, 1 SISTER AGE 6 WEEKS SIDS 2 BROTHER(S) , 2 SISTER(S) - HEALTHY. SOCIAL HISTORY GENERAL: TOBACCO USE ARE YOU A:NONSMOKER NEVER SMOKER BMI CARE GOAL FOLLOW-UP ABOVE NORMAL BMI FOLLOW-UPGIVING ENCOURAGEMENT TO EXERCISE ALCOHOL SCREENING DID YOU HAVE A DRINK CONTAINING ALCOHOL IN THE PAST YEAR?YES HOW OFTEN DID YOU HAVE A DRINK CONTAINING ALCOHOL IN THE PAST YEAR?TWO TO FOUR TIMES A MONTH (2 POINTS) HOW MANY DRINKS DID YOU HAVE ON A TYPICAL DAY WHEN YOU WERE DRINKING IN THE PAST YEAR?1 OR 2 (0 POINTS) HOW OFTEN DID YOU HAVE SIX OR MORE DRINKS ON ONE OCCASION IN THE PAST YEAR?NEVER (0 POINTS) POINTS2 INTERPRETATIONNEGATIVE RECREATIONAL DRUG USE DRUG USE?NO CAFFEINE CAFFEINE USE?YES HOW OFTEN AND HOW MUCH? 1 SODA 12 OZ [facility] [id number] NONE LANGUAGE FRENCH. 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 MARITAL STATUS: SINGLE. OTHERS AT HOME: FATHER, MOTHER. PAIN CLINIC PFS, CLERGY, PUBLIC HEALTH REFERRALS PFS REFERRAL NEEDED?NO CLERGY REFERRAL NEEDED?NO PUBLIC HEALTH REFERRAL NEEDED?NO HAS THE PATIENT BEEN EDUCATED REGARDING HIS/HER PLAN OF CARE?YES HAS THE PATIENT BEEN EDUCATED REGARDING PAIN, THE RISK FOR PAIN, THE IMPORTANCE OF EFFECTIVE PAIN MANAGEMENT, AND THE PAIN ASSESSMENT PROCESS?YES ADVANCE DIRECTIVE ADVANCE DIRECTIVE DISCUSSED WITH PATIENT:YES MACHO SHRESTHARENETTATORSTEN [phone] REVIEWED WITH PATIENT 11/25/18 0935 SJ. HOSPITALIZATION/MAJOR DIAGNOSTIC PROCEDURE DEHYDRATION 2002 ASTHMA 2005 SURGERY 05/1995 REVIEW OF SYSTEMS REVIEWED BY: PROVIDER: . CONSTITUTIONAL: ANY CHANGE IN YOUR MEDICAL CONDITION? NO . CHILLS NO . FEVER NO . INFECTION: DO YOU HAVE NEW INFECTIONS? NO . DO YOU HAVE HISTORY OF MRSA? NO . MUSCULOSKELETAL: ANY NEW PATTERNS OF PAIN OR NUMBNESS? NO . GASTROENTEROLOGY: ANY NEW CHANGE IN BOWEL CONTROL? NO . GENITOURINARY: ANY NEW CHANGE IN BLADDER CONTROL? NO . IS THERE A CHANCE YOU COULD BE ? NO . HEMATOLOGY/LYMPH: DO YOU TAKE ANY BLOOD THINNERS? (FOR EXAMPLE- COUMADIN, PLAVIX, AGGRENOX, PLATEL, PRADAXA, OR XARELTO) NO . WHEN WAS YOUR LAST DOSE? DATE: TIME: . NEUROLOGY: HAVE YOU FALLEN IN THE PAST 12 MONTHS? NO . ANY NEW EXTREMITY NUMBNESS OR WEAKNESS? NO . CARDIOLOGY: DO YOU HAVE A PACEMAKER OR DEFIBRILLATOR? NO . RESPIRATORY: HAVE YOU BEEN SICK IN THE PAST WEEK? NO . FEVER NO . FLU LIKE SYMPTOMS? NO . COUGH NO . INTEGUMENTARY: DO YOU HAVE ANY RASHES OR OPEN SORES? NO . ALLERGIC/IMMUNO: ARE YOU ALLERGIC TO IV DYE? NO . ANY NEW ALLERGIES? NO . PSYCHIATRIC: DO YOU HAVE THOUGHTS OF HURTING YOURSELF OR SOMEONE ELSE? NO . ARE YOU ABUSED, NEGLECTED, OR IN AN UNSAFE ENVIRONMENT? NO . ENDOCRINOLOGY: ARE YOU DIABETIC? NO . OTHER: DO YOU NEED ANY PRESCRIPTIONS? NO . IF YES, PLEASE LIST: ____ . ANY NEW PROBLEMS WITH YOUR MEDICATIONS? NO . WHEN DID YOU LAST EAT? 12/02/18 1900 . WHEN DID YOU LAST DRINK? 12/03/18 1130 . WHAT DID YOU LAST DRINK? WATER . NAME OF PERSON DRIVING YOU HOME? BILL OR ALHAJI . DO YOU HAVE ANY OTHER QUESTIONS OR CONCERNS NO . VITAL SIGNS WT 192 LBS, HT 62 IN, BMI 35.11 INDEX, BP 139/90 MM HG, HR 89 /MIN, RR 16 /MIN, TEMP 97.9 F, OXYGEN SAT % 99%, NA INITIALS AW 1339, REVIEWED BY: EM. 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 MADDI RICHARD MACHINE LEAD BURNER NONE ANESTHESIA LOCAL PRE PROCEDURE NOTE PATIENT WITH A HISTORY OF CHRONIC OCCIPITAL PAIN. THE PAIN IS LOCATED OVER THE OCCIPITAL AREA WITH RADIATION TOWARDS THE PARIETAL AREA OF THE CRANIUM. I EVALUATED THE PATIENT AND REVIEWED THE CHART. I WENT OVER THE RISKS, ALTERNATIVES, AND BENEFITS ASSOCIATED WITH THIS PROCEDURE. THE PATIENT WOULD LIKE TO PROCEED AND GAVE CONSENT TO PERFORM THE PROCEDURE. THE PATIENT DENIES UNEXPLAINABLE WEIGHT LOSS, FEVER, CHILLS, OR NEW CHANGES IN URINARY OR BOWEL CONTROL DESCRIPTION OF PROCEDURE THE PATIENT WAS BROUGHT TO THE PROCEDURE ROOM AND PLACED IN THE SITTING POSITION. THE RIGHT OCCIPITAL AREA WAS CLEANED WITH ALCOHOL. THE PROCEDURE WAS DONE USING STERILE TECHNIQUES. I CHECKED LATERALITY AND THE LEVEL WHERE THE PROCEDURE WAS GOING TO BE PERFORMED WITH THE PATIENT AND THE SUPPORTING STAFF AT THE MOMENT OF THE TIME OUT IN THE PROCEDURE ROOM. USING A 25-GAUGE NEEDLE, THE RIGHT OCCIPITAL NERVE WAS INJECTED AT THE NUCHAL LINE, 1-INCH LATERAL OF MIDLINE. I USED A TOTAL OF 15 ML OF BUPIVACAINE 0.25% WITH KENALOG 20 MG AT EACH NERVE. THERE WAS NO EVIDENCE OF BLOOD, PARESTHESIA OR CEREBROSPINAL FLUID DURING THE PROCEDURE. THE PATIENT WAS SENT TO THE RECOVERY ROOM. THE PATIENT WAS MOVING THE EXTREMITIES AND DOING WELL. THERE WAS NO COMPLICATION DURING THE PROCEDURE POST PROCEDURE NOTE THE PATIENT WILL BE SEEN IN A FOLLOW UP IN THE NEXT FEW WEEKS. INSTRUCTIONS WERE GIVEN, QUESTIONS WERE ANSWERED, AND THE PATIENT EXPRESSED UNDERSTANDING AND AGREED WITH THE PLAN. PROCEDURE CODES 47936 N BLOCK INJ OCCIPITAL, MODIFIERS: RT DISPOSITION & COMMUNICATION FOLLOW UP 6 WEEKS ELECTRONICALLY SIGNED BY MADDI RICHARD MD, MD ON 12/13/2018 AT 07:06 PM EST DISCLAIMER : THIS IS A VISIT SUMMARY EXTRACTED FROM THE [employer] CHART. IT IS NOT A COPY OF THE [employer] PROGRESS NOTE. JUAREZ
== END ==
LOC: M PAIN 13:45
PROVIDERS: ATTEND Anesthesiology
DX: M54.81 Occipital neuralgia (principal); J45.909 Unspecified asthma, uncomplicated; G43.909 Migraine, unspecified, not intractable, without status migrainosus; Z79.899 Other long term (current) drug therapy; Z91.038 Other insect allergy status; Z88.8 Allergy status to other drugs, medicaments and biological substances
CPT/HCPCS: 64405; J3301

== ENCOUNTER 2018-12-18 13:29 | Emergency (ER) | payer BC ==
[~2018-12-18] VITALS: Ht 157.5 cm; Wt 81.8 kg
[~2018-12-18 13:29] MED LIST changes: -AMIT50TA; +AMIT50TA PO; -BUPIVACAINE HCL 0.25% 10 ML VIAL As Ordered ONE; -BUPIVACAINE HCL 0.25% 30 ML VIAL As Ordered ONE; -TRIAMCINOLONE ACETONIDE SUSP 40 MG/ML VIAL (J3301) As Ordered ONE; -ZONI50CA3; +ZONI50CA3 PO; -diazePAM 5 MG TAB As Ordered ONE; -oxyCODONE 5MG TAB As Ordered ONE
[2018-12-18] MEDS ORDERED: ACE65ERTAB PO (13:37)
[2018-12-18] MEDS ORDERED: NS 1,000 ML IV ONE (14:00)
[2018-12-18] MEDS ORDERED: METOCLOPRAMIDE INJ 10MG/2ML VIAL (J2765) IV ONE (14:00)
[2018-12-18] MEDS ORDERED: ACETAMINOPHEN TAB 650MG DOSE (2X325MG) PO ONE (14:00)
[2018-12-18] MEDS ORDERED: diphenhydrAMINE INJ 50MG/ML VIAL (J1200) IV ONE (14:00)
[2018-12-18 16:12] VITALS: BP 123/71
== END 2018-12-18 16:14 | disposition home or self-care (01) ==
LOC: M ED 13:29
DX: G43.909 Migraine, unspecified, not intractable, without status migrainosus (principal); J45.909 Unspecified asthma, uncomplicated; Z14.01 Asymptomatic hemophilia A carrier; Z79.899 Other long term (current) drug therapy; Z88.8 Allergy status to other drugs, medicaments and biological substances
CPT/HCPCS: 96374; 96375; 99284; J1200; J2765

== ENCOUNTER → 2019-01-07 | Outpatient (CLI) | payer BC ==
[~2019-01-07] MED LIST changes: +ACE65ERTAB PO
--- NOTE | 2019-01-23 01:28 | ECWPNPC ---
PATIENT NAME: MONET LEDEZMA : 1995 GENDER: FEMALE VISIT DATE: 01/07/2019 DISCHARGE DATE: 01/07/19 1030 VISIT LOCKED DATE TIME: PHYSICIAN: IMAN GURROLA RESOURCE: IMAN GURROLA REASON FOR APPOINTMENT 1. NECK/POST PROC HISTORY OF PRESENT ILLNESS HISTORY OF PRESENT ILLNESS: HERE FOR POST PROCEDURE F/U.HAD GREATER OCCIPITAL -RIGHT ON 12/03/18.STATES INJECTION HELPED SIGNIFICANTLY.IS GRADUALLY RETURNING TO BASELINE.RATING PAIN VAS 3/10. PAIN THE PATIENT DESCRIBES THE PAIN... FALL RISK SCREENING: SCREENING : NO FALLS IN THE PAST YEAR. CURRENT MEDICATIONS TAKING AMITRIPTYLINE HCL 75 MG TABLET 1 TABLET AT BEDTIME ORALLY ONCE A DAY TAKING NEXPLANON 68 MG IMPLANT LEFT ARM SUBCUTANEOUS IMPLANTED 07/2015 TAKING IMITREX 6 MG/0.5ML SOLUTION 0.5 ML NEEDED SUBCUTANEOUS NEEDED TAKING ZONISAMIDE 50 MG CAPSULE 1 CAPSULE ORALLY THREE TIMES DAILY TAKING TRAMADOL HCL 50 MG TABLET 1 TABLET NEEDED ORALLY EVERY 6 HRS TAKING ALBUTEROL SULFATE HFA 108 (90 BASE) MCG/ACT AEROSOL SOLUTION 2 PUFFS NEEDED INHALATION EVERY 6 HRS TAKING CYCLOBENZAPRINE HCL 10 MG TABLET 1/2-1 TAB ORALLY Q6H PRN PAIN TAKING ARTHRITIS PAIN 650 MG TABLET EXTENDED RELEASE 2 TABLETS NEEDED ORALLY EVERY 8 HRS NOT-TAKING TYLENOL 325 MG TABLET 1 TABLET NEEDED ORALLY EVERY 4 HRS NOT-TAKING IBUPROFEN 800 MG TABLET 1 TABLET WITH FOOD OR MILK NEEDED ORALLY NEEDED NOT-TAKING DIAZEPAM 5 MG TABLET 1 TABLET NEEDED ORALLY TAKE 1 TAB ONE HOUR PRIOR TO TEST, AND 1 TAB ON ARRIVA MDD=2L NOT-TAKING DEPAKOTE 500 MG TABLET DELAYED RELEASE 1 TABLET ORALLY ONCE A DAY NOT-TAKING ADVAIR DISKUS 250-50 MCG/DOSE AEROSOL POWDER BREATH ACTIVATED 1 PUFF INHALATION TWICE A DAY MEDICATION LIST REVIEWED AND RECONCILED WITH THE PATIENT PAST MEDICAL HISTORY ASTHMA MIGRAINE SEES VINCENT HAD MRI NO AURA SYNCOPAL EPISODES - STABLE CONCUSSION LAST JUN 2017 HEMOPHILIA A CARRIER ONLY DISLOCATED KNEE LEFT 06/2018 ALLERGIES TORADOL: BURNING IN HEAD - SIDE EFFECTS SPIDER BITES: LOCAL SWELLING - SIDE EFFECTS SURGICAL HISTORY REMOVAL EXTRA DIGITS EACH HAND AGE 3 MO T&A AGE 7 WISDOM TEETH REMOVED 2015 LEFT KNEE BONE FRAGMENT REMOVED 08/2018 FAMILY HISTORY FATHER: ALIVE 60 YRS, HEMOPHILIA MOTHER: ALIVE 61 YRS, HTN, BREAST CANCER, DIAGNOSED WITH HYPERTENSION, CANCER SIBLINGS: BROTHERS ALCOHOLISM, 1 SISTER AGE 6 WEEKS SIDS 2 BROTHER(S) , 2 SISTER(S) - HEALTHY. SOCIAL HISTORY GENERAL: TOBACCO USE ARE YOU A:NONSMOKER NEVER SMOKER BMI CARE GOAL FOLLOW-UP ABOVE NORMAL BMI FOLLOW-UPGIVING ENCOURAGEMENT TO EXERCISE ALCOHOL SCREENING DID YOU HAVE A DRINK CONTAINING ALCOHOL IN THE PAST YEAR?YES HOW OFTEN DID YOU HAVE A DRINK CONTAINING ALCOHOL IN THE PAST YEAR?TWO TO FOUR TIMES A MONTH (2 POINTS) HOW MANY DRINKS DID YOU HAVE ON A TYPICAL DAY WHEN YOU WERE DRINKING IN THE PAST YEAR?1 OR 2 (0 POINTS) HOW OFTEN DID YOU HAVE SIX OR MORE DRINKS ON ONE OCCASION IN THE PAST YEAR?NEVER (0 POINTS) POINTS2 INTERPRETATIONNEGATIVE RECREATIONAL DRUG USE DRUG USE?NO CAFFEINE CAFFEINE USE?YES HOW OFTEN AND HOW MUCH? 1 SODA 12 OZ BUDDHISM [id number] NONE LANGUAGE [place]OREAN. 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 MARITAL STATUS: SINGLE. OTHERS AT HOME: FATHER, MOTHER. PAIN CLINIC PFS, CLERGY, PUBLIC HEALTH REFERRALS PFS REFERRAL NEEDED?NO CLERGY REFERRAL NEEDED?NO PUBLIC HEALTH REFERRAL NEEDED?NO HAS THE PATIENT BEEN EDUCATED REGARDING HIS/HER PLAN OF CARE?YES HAS THE PATIENT BEEN EDUCATED REGARDING PAIN, THE RISK FOR PAIN, THE IMPORTANCE OF EFFECTIVE PAIN MANAGEMENT, AND THE PAIN ASSESSMENT PROCESS?YES ADVANCE DIRECTIVE ADVANCE DIRECTIVE DISCUSSED WITH PATIENT:YES MACHO SHRESTHARENETTATORSTEN [phone] REVIEWED WITH PATIENT 11/25/18 0935 SJ. HOSPITALIZATION/MAJOR DIAGNOSTIC PROCEDURE DEHYDRATION 2002 ASTHMA 2005 SURGERY 05/1995 REVIEW OF SYSTEMS REVIEWED BY: PROVIDER: IMAN GARZA . CONSTITUTIONAL: ANY CHANGE IN YOUR MEDICAL CONDITION? NO . CHILLS NO . FEVER NO . INFECTION: DO YOU HAVE NEW INFECTIONS? YES, STREP THROAT TX'D ABX FEELING A LITTLE BETTER . DO YOU HAVE HISTORY OF MRSA? NO . MUSCULOSKELETAL: ANY NEW PATTERNS OF PAIN OR NUMBNESS? NO . GASTROENTEROLOGY: ANY NEW CHANGE IN BOWEL CONTROL? NO . GENITOURINARY: ANY NEW CHANGE IN BLADDER CONTROL? NO . IS THERE A CHANCE YOU COULD BE ? NO . HEMATOLOGY/LYMPH: DO YOU TAKE ANY BLOOD THINNERS? (FOR EXAMPLE- COUMADIN, PLAVIX, AGGRENOX, PLATEL, PRADAXA, OR XARELTO) NO . WHEN WAS YOUR LAST DOSE? DATE: TIME: . NEUROLOGY: HAVE YOU FALLEN IN THE PAST 12 MONTHS? YES, PRIOR TO LAST VISIT . ANY NEW EXTREMITY NUMBNESS OR WEAKNESS? NO . CARDIOLOGY: DO YOU HAVE A PACEMAKER OR DEFIBRILLATOR? NO . RESPIRATORY: HAVE YOU BEEN SICK IN THE PAST WEEK? YES, STREP THROAT TX'D W ABX . FEVER NO . FLU LIKE SYMPTOMS? NO . COUGH NO . INTEGUMENTARY: DO YOU HAVE ANY RASHES OR OPEN SORES? NO . ALLERGIC/IMMUNO: ARE YOU ALLERGIC TO IV DYE? NO . ANY NEW ALLERGIES? NO . PSYCHIATRIC: DO YOU HAVE THOUGHTS OF HURTING YOURSELF OR SOMEONE ELSE? NO . ARE YOU ABUSED, NEGLECTED, OR IN AN UNSAFE ENVIRONMENT? NO . ENDOCRINOLOGY: ARE YOU DIABETIC? NO . OTHER: DO YOU NEED ANY PRESCRIPTIONS? NO . IF YES, PLEASE LIST: ____ . ANY NEW PROBLEMS WITH YOUR MEDICATIONS? NO . WHEN DID YOU LAST EAT? ____ . WHEN DID YOU LAST DRINK? ____ . WHAT DID YOU LAST DRINK? ____ . NAME OF PERSON DRIVING YOU HOME? ____ . DO YOU HAVE ANY OTHER QUESTIONS OR CONCERNS NO . VITAL SIGNS WT 192 LBS, HT 62 IN, BMI 35.11 INDEX, BP 124/75 MM HG, HR 82 /MIN, RR 16 /MIN, TEMP 97.7 F, OXYGEN SAT % 98, REVIEWED BY: EM. EXAMINATION GENERAL EXAMINATION: GENERAL APPEARANCE:AWAKE,ALERT ,PLEAASANT . PSYCHAFFECT NORMAL . LUNGS:LUNG FERREIRA ARE CLEAR TO AUSCULTATION BILATERALLY. GOOD MOVEMENT OF AIR . HEART:S1, S2 IN A REGULAR RATE AND RHYTHM. NO SIGNIFICANT MURMURS, RUBS OR GALLOPS NOTED . 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 PROCEDURE CODES [id number] ESTABILISHED PATIENT [facility] CHARGE DISPOSITION & COMMUNICATION FOLLOW UP POST (REASON: RIGHT GREATER OCCIPITAL BLOCK) ELECTRONICALLY SIGNED BY KAYLA WYMAN ON 01/22/2019 AT 01:04 PM EDT DISCLAIMER : THIS IS A VISIT SUMMARY EXTRACTED FROM THE [employer] CHART. IT IS NOT A COPY OF THE [employer] PROGRESS NOTE. JUAREZ
== END ==
LOC: M PAIN 13:00
PROVIDERS: ATTEND Nurse Practitioner Family
DX: M54.81 Occipital neuralgia (principal); J45.909 Unspecified asthma, uncomplicated; Z88.8 Allergy status to other drugs, medicaments and biological substances; Z91.038 Other insect allergy status

== ENCOUNTER 2019-02-04 09:08 | Emergency (ER) | payer BC ==
[~2019-02-04] VITALS: Ht 157.5 cm; Wt 84.1 kg
[2019-02-04] MEDS ORDERED: METOCLOPRAMIDE INJ 10MG/2ML VIAL (J2765) IV ONE (09:45)
[2019-02-04] MEDS ORDERED: ACETAMINOPHEN 500 MG TAB PO ONE (09:45)
[2019-02-04] MEDS ORDERED: NS 1,000 ML IV ONE (09:45)
[2019-02-04] MEDS ORDERED: diphenhydrAMINE INJ 50MG/ML VIAL (J1200) IV ONE (09:45)
--- NOTE | 2019-02-04 10:36 | REP ---
Head CT without contrast: History: Prolonged migraine. New onset of dizziness. Comparison study: Comparison CT study January 10, 2015. CT findings: Bone window settings demonstrate an intact bony calvarium. There is no evidence of skull fracture or incidental bony calvarial lesion. There are mild mucosal thickening changes in the right sphenoid and ethmoid sinuses. The visualized paranasal sinuses appear otherwise clear. No intraorbital abnormality is seen. On soft tissue window setting images; the lateral, third, and fourth ventricles are normal in size and position. Hansen-white differentiation pattern is normal above and below the tentorium. There are is no evidence of intracranial hemorrhage. No mass, edema, infarction, or midline shift is seen. No extra-axial fluid collection is appreciated. Impression: Mucosal changes in the right sphenoid and ethmoid sinuses. Otherwise negative noncontrast head CT. Electronically Signed by Liu Taylor MD 02/04/2019 10:27 A
[2019-02-04 11:12] VITALS: BP 116/71
== END 2019-02-04 11:14 | disposition home or self-care (01) ==
LOC: M ED 09:08
DX: G43.109 Migraine with aura, not intractable, without status migrainosus (principal); Z88.8 Allergy status to other drugs, medicaments and biological substances; Z82.49 Family history of ischemic heart disease and other diseases of the circulatory system; Z79.3 Long term (current) use of hormonal contraceptives; Z79.899 Other long term (current) drug therapy
CPT/HCPCS: 70450; 81025; 96374; 96375; 99284; J1200; J2765

== ENCOUNTER → 2019-02-10 | Outpatient (CLI) | payer BC ==
[~2019-02-10] MED LIST changes: +BUPIVACAINE HCL 0.25% 10 ML VIAL As Ordered ONE; +BUPIVACAINE HCL 0.25% 30 ML VIAL As Ordered ONE; +TRIAMCINOLONE ACETONIDE SUSP 40 MG/ML VIAL (J3301) As Ordered ONE; +diazePAM 5 MG TAB As Ordered ONE; +oxyCODONE 5MG TAB As Ordered ONE
--- NOTE | 2019-02-23 00:50 | ECWPNPC ---
PATIENT NAME: MONET LEDEZMA : 1995 GENDER: FEMALE VISIT DATE: 02/10/2019 DISCHARGE DATE: 02/10/19 1612 VISIT LOCKED DATE TIME: PHYSICIAN: MADDI RICHARD MD RESOURCE: MADDI RICHARD MD REASON FOR APPOINTMENT 1. R GREATER OCCIPITAL NB HISTORY OF PRESENT ILLNESS HISTORY OF PRESENT ILLNESS: PAIN THE PATIENT DESCRIBES THE PAIN... FALL RISK SCREENING: SCREENING :NO FALLS REPORTED IN THE LAST YEAR CURRENT MEDICATIONS TAKING AMITRIPTYLINE HCL 75 MG TABLET 1 TABLET AT BEDTIME ORALLY ONCE A DAY, NOTES: 02/09/19 TAKING NEXPLANON 68 MG IMPLANT LEFT ARM SUBCUTANEOUS IMPLANTED 07/2015 TAKING IMITREX 6 MG/0.5ML SOLUTION 0.5 ML NEEDED SUBCUTANEOUS NEEDED, NOTES: NONE LATELY TAKING ZONISAMIDE 50 MG CAPSULE 1 CAPSULE ORALLY THREE TIMES DAILY, NOTES: 02/10/19 0830 TAKING TRAMADOL HCL 50 MG TABLET 1 TABLET NEEDED ORALLY EVERY 6 HRS, NOTES: NONE LATELY TAKING ALBUTEROL SULFATE HFA 108 (90 BASE) MCG/ACT AEROSOL SOLUTION 2 PUFFS NEEDED INHALATION EVERY 6 HRS, NOTES: LAST WEEK TAKING CYCLOBENZAPRINE HCL 10 MG TABLET 1/2-1 TAB ORALLY Q6H PRN PAIN, NOTES: NONE LATELY TAKING ARTHRITIS PAIN 650 MG TABLET EXTENDED RELEASE 2 TABLETS NEEDED ORALLY EVERY 8 HRS, NOTES: LAST WEEK TAKING IMITREX 100 MG TABLET 1 TABLET NEEDED ORALLY TWICE A DAY, NOTES: LAST WEEK NOT-TAKING TYLENOL 325 MG TABLET 1 TABLET NEEDED ORALLY EVERY 4 HRS NOT-TAKING IBUPROFEN 800 MG TABLET 1 TABLET WITH FOOD OR MILK NEEDED ORALLY NEEDED NOT-TAKING DIAZEPAM 5 MG TABLET 1 TABLET NEEDED ORALLY TAKE 1 TAB ONE HOUR PRIOR TO TEST, AND 1 TAB ON ARRIVA MDD=2L NOT-TAKING DEPAKOTE 500 MG TABLET DELAYED RELEASE 1 TABLET ORALLY ONCE A DAY NOT-TAKING ADVAIR DISKUS 250-50 MCG/DOSE AEROSOL POWDER BREATH ACTIVATED 1 PUFF INHALATION TWICE A DAY MEDICATION LIST REVIEWED AND RECONCILED WITH THE PATIENT PAST MEDICAL HISTORY ASTHMA MIGRAINE SEES NESANDRA HAD MRI NO AURA SYNCOPAL EPISODES - STABLE CONCUSSION LAST JUN 2017 HEMOPHILIA A CARRIER ONLY DISLOCATED KNEE LEFT 06/2018 ALLERGIES TORADOL: BURNING IN HEAD - SIDE EFFECTS SPIDER BITES: LOCAL SWELLING - SIDE EFFECTS SURGICAL HISTORY REMOVAL EXTRA DIGITS EACH HAND AGE 3 MO T&A AGE 7 WISDOM TEETH REMOVED 2015 LEFT KNEE BONE FRAGMENT REMOVED 08/2018 FAMILY HISTORY FATHER: ALIVE 60 YRS, HEMOPHILIA MOTHER: ALIVE 61 YRS, HTN, BREAST CANCER, DIAGNOSED WITH HYPERTENSION, CANCER SIBLINGS: BROTHERS ALCOHOLISM, 1 SISTER AGE 6 WEEKS SIDS 2 BROTHER(S) , 2 SISTER(S) - HEALTHY. SOCIAL HISTORY GENERAL: TOBACCO USE ARE YOU A:NONSMOKER NEVER SMOKER BMI CARE GOAL FOLLOW-UP ABOVE NORMAL BMI FOLLOW-UPGIVING ENCOURAGEMENT TO EXERCISE ALCOHOL SCREENING DID YOU HAVE A DRINK CONTAINING ALCOHOL IN THE PAST YEAR?YES HOW OFTEN DID YOU HAVE SIX OR MORE DRINKS ON ONE OCCASION IN THE PAST YEAR?NEVER (0 POINTS) HOW MANY DRINKS DID YOU HAVE ON A TYPICAL DAY WHEN YOU WERE DRINKING IN THE PAST YEAR?1 OR 2 (0 POINTS) HOW OFTEN DID YOU HAVE A DRINK CONTAINING ALCOHOL IN THE PAST YEAR?TWO TO FOUR TIMES A MONTH (2 POINTS) POINTS2 INTERPRETATIONNEGATIVE RECREATIONAL DRUG USE DRUG USE?NO CAFFEINE CAFFEINE USE?YES HOW OFTEN AND HOW MUCH? 1 SODA 12 OZ MANDAEISM [id number] NONE LANGUAGE [place]ORUBA. LEARNING BARRIERS / SPECIAL NEEDS CHANGE FROM LAST VISIT?NO BARRIERS TO LEARNING?NO HEARING IMPAIRED?NO VISION IMPAIRED?YES COGNITIVELY IMPAIRED?NO :CORRECTIVE LENSES READINESS TO LEARN?YES LEARNING PREFERENCES?NO LEARNING CAPABILITIES PRESENT?YES EMOTIONAL BARRIERS?NO SPECIAL DEVICES?NO PRIMARY CARE NURSE NEEDED?NO OCCUPATION: [employer]. MARITAL STATUS: SINGLE. OTHERS AT HOME: FATHER, MOTHER. PAIN CLINIC PFS, CLERGY, PUBLIC HEALTH REFERRALS PFS REFERRAL NEEDED?NO CLERGY REFERRAL NEEDED?NO PUBLIC HEALTH REFERRAL NEEDED?NO HAS THE PATIENT BEEN EDUCATED REGARDING HIS/HER PLAN OF CARE?YES HAS THE PATIENT BEEN EDUCATED REGARDING PAIN, THE RISK FOR PAIN, THE IMPORTANCE OF EFFECTIVE PAIN MANAGEMENT, AND THE PAIN ASSESSMENT PROCESS?YES ADVANCE DIRECTIVE ADVANCE DIRECTIVE DISCUSSED WITH PATIENT:YES MACHO AGUIRRE [phone] REVIEWED WITH PATIENT 11/25/18 0935 . HOSPITALIZATION/MAJOR DIAGNOSTIC PROCEDURE DEHYDRATION 2002 ASTHMA 2005 SURGERY 05/1995 REVIEW OF SYSTEMS REVIEWED BY: PROVIDER: . CONSTITUTIONAL: ANY CHANGE IN YOUR MEDICAL CONDITION? NO . CHILLS NO . FEVER NO . INFECTION: DO YOU HAVE NEW INFECTIONS? NO . DO YOU HAVE HISTORY OF MRSA? NO . MUSCULOSKELETAL: ANY NEW PATTERNS OF PAIN OR NUMBNESS? YES, INCREASED PAIN AND MIGRAINES . GASTROENTEROLOGY: ANY NEW CHANGE IN BOWEL CONTROL? NO . GENITOURINARY: ANY NEW CHANGE IN BLADDER CONTROL? NO . IS THERE A CHANCE YOU COULD BE ? NO . HEMATOLOGY/LYMPH: DO YOU TAKE ANY BLOOD THINNERS? (FOR EXAMPLE- COUMADIN, PLAVIX, AGGRENOX, PLATEL, PRADAXA, OR XARELTO) NO . WHEN WAS YOUR LAST DOSE? DATE: TIME: . NEUROLOGY: HAVE YOU FALLEN IN THE PAST 12 MONTHS? YES, PRIOR TO LAST VISIT . ANY NEW EXTREMITY NUMBNESS OR WEAKNESS? NO . CARDIOLOGY: DO YOU HAVE A PACEMAKER OR DEFIBRILLATOR? NO . RESPIRATORY: HAVE YOU BEEN SICK IN THE PAST WEEK? NO . FEVER NO . FLU LIKE SYMPTOMS? NO . COUGH NO . INTEGUMENTARY: DO YOU HAVE ANY RASHES OR OPEN SORES? NO . ALLERGIC/IMMUNO: ARE YOU ALLERGIC TO IV DYE? NO . ANY NEW ALLERGIES? NO . PSYCHIATRIC: DO YOU HAVE THOUGHTS OF HURTING YOURSELF OR SOMEONE ELSE? NO . ARE YOU ABUSED, NEGLECTED, OR IN AN UNSAFE ENVIRONMENT? NO . ENDOCRINOLOGY: ARE YOU DIABETIC? NO . OTHER: DO YOU NEED ANY PRESCRIPTIONS? NO . IF YES, PLEASE LIST: ____ . ANY NEW PROBLEMS WITH YOUR MEDICATIONS? NO . WHEN DID YOU LAST EAT? 02/09/19 2100 . WHEN DID YOU LAST DRINK? 02/10/19 1230 . WHAT DID YOU LAST DRINK? SPRITE . NAME OF PERSON DRIVING YOU HOME? ALHAJI . DO YOU HAVE ANY OTHER QUESTIONS OR CONCERNS NO . VITAL SIGNS WT 192 LBS, HT 62 IN, BMI 35.11 INDEX, BP 119/85 MM HG, HR 75 /MIN, RR 16 /MIN, TEMP 98.3 F, OXYGEN SAT % 100%, NA INITIALS SC 15:02. 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 POST PROCEDURE DIAGNOSIS OCCIPITAL NEURALGIA. PROCEDURE RIGHT GREATER OCCIPITAL NERVE BLOCK SURGEON DR. MADDI RICHARD ICT EDUCATOR NONE ANESTHESIA LOCAL PRE PROCEDURE NOTE 23 YEAR-OLD PATIENT WITH HISTORY OF CHRONIC OCCIPITAL PAIN. THE PAIN IS LOCATED OVER THE OCCIPITAL AREA WITH RADIATION TOWARDS THE PARIETAL AREA OF THE CRANIUM. I EVALUATED THE PATIENT AND REVIEWED THE CHART. I WENT OVER THE RISKS, ALTERNATIVES, AND BENEFITS ASSOCIATED WITH THIS PROCEDURE. THE PATIENT WOULD LIKE TO PROCEED AND GAVE CONSENT TO PERFORM THE PROCEDURE. THE PATIENT DENIES UNEXPLAINABLE WEIGHT LOSS, FEVER, CHILLS, OR NEW CHANGES IN URINARY OR BOWEL CONTROL. DESCRIPTION OF PROCEDURE THE PATIENT WAS BROUGHT TO THE PROCEDURE ROOM AND PLACED IN THE SITTING POSITION. THE RIGHT OCCIPITAL AREA WAS CLEANED WITH ALCOHOL. THE PROCEDURE WAS DONE USING STERILE TECHNIQUES. I CHECKED LATERALITY AND THE LEVEL WHERE THE PROCEDURE WAS GOING TO BE PERFORMED WITH THE PATIENT AND THE SUPPORTING STAFF AT THE MOMENT OF THE TIME OUT IN THE PROCEDURE ROOM. USING A 25-GAUGE NEEDLE, THE RIGHT OCCIPITAL NERVE WAS INJECTED AT THE NUCHAL LINE, 1-INCH LATERAL OF MIDLINE. I USED A TOTAL OF 15 ML OF BUPIVACAINE 0.25% WITH KENALOG 20 MG AT EACH NERVE. THERE WAS NO EVIDENCE OF BLOOD, PARESTHESIA OR CEREBROSPINAL FLUID DURING THE PROCEDURE. THE PATIENT WAS SENT TO THE RECOVERY ROOM. THE PATIENT WAS MOVING THE EXTREMITIES AND DOING WELL. THERE WAS NO COMPLICATION DURING THE PROCEDURE. POST PROCEDURE NOTE THE PATIENT WILL BE SEEN IN A FOLLOW UP IN THE NEXT FEW WEEKS. INSTRUCTIONS WERE GIVEN, QUESTIONS WERE ANSWERED, AND THE PATIENT EXPRESSED UNDERSTANDING AND AGREED WITH THE PLAN. I, SHAILA FERNÁNDEZ, DOCUMENTED THE ABOVE INFORMATION ACTING A SCRIBE FOR DR. RICHARD. I HAVE REVIEWED THE ABOVE DOCUMENT, WRITTEN BY SHAILA FERNÁNDEZ SCRIBMagdaleno AND I VERIFY THAT IT IS ACCURATE. PROCEDURE CODES 03584 N BLOCK INJ OCCIPITAL, MODIFIERS: RT DISPOSITION & COMMUNICATION FOLLOW UP 3 WEEKS ELECTRONICALLY SIGNED BY MADDI RICHARD MD, MD ON 02/22/2019 AT 08:22 PM EDT DISCLAIMER : THIS IS A VISIT SUMMARY EXTRACTED FROM THE [employer] CHART. IT IS NOT A COPY OF THE [employer] PROGRESS NOTE. JUAREZ
== END ==
LOC: M PAIN 15:00
PROVIDERS: ATTEND Anesthesiology
DX: M54.81 Occipital neuralgia (principal); J45.909 Unspecified asthma, uncomplicated; G43.909 Migraine, unspecified, not intractable, without status migrainosus; Z88.8 Allergy status to other drugs, medicaments and biological substances; Z91.038 Other insect allergy status
CPT/HCPCS: 64405; J3301

== ENCOUNTER → 2019-03-02 | Outpatient (CLI) | payer BC ==
[~2019-03-02] MED LIST changes: -BUPIVACAINE HCL 0.25% 10 ML VIAL As Ordered ONE; -BUPIVACAINE HCL 0.25% 30 ML VIAL As Ordered ONE; -TRIAMCINOLONE ACETONIDE SUSP 40 MG/ML VIAL (J3301) As Ordered ONE; -diazePAM 5 MG TAB As Ordered ONE; -oxyCODONE 5MG TAB As Ordered ONE
--- NOTE | 2019-03-25 00:55 | ECWPNPC ---
PATIENT NAME: MONET LEDEZMA : 1995 GENDER: FEMALE VISIT DATE: 03/02/2019 DISCHARGE DATE: 03/02/19 1415 VISIT LOCKED DATE TIME: PHYSICIAN: IMAN GURROLA RESOURCE: IMAN GURROLA REASON FOR APPOINTMENT 1. POST PROC HISTORY OF PRESENT ILLNESS HISTORY OF PRESENT ILLNESS: HERE FOR POST PROCEDURE F/U.HAD GREATER OCCIPITAL -RIGHT ON 02/10/19.STATES INJECTION HELPED SIGNIFICANTLY.IS GRADUALLY RETURNING TO BASELINE.RATING PAIN VAS 1/10. PAIN THE PATIENT DESCRIBES THE PAIN... THE PATIENT DESCRIBES THE PAIN... FALL RISK SCREENING: SCREENING :NO FALLS REPORTED IN THE LAST YEAR CURRENT MEDICATIONS TAKING AMITRIPTYLINE HCL 75 MG TABLET 1 TABLET AT BEDTIME ORALLY ONCE A DAY TAKING NEXPLANON 68 MG IMPLANT LEFT ARM SUBCUTANEOUS IMPLANTED 07/2015 TAKING IMITREX 6 MG/0.5ML SOLUTION 0.5 ML NEEDED SUBCUTANEOUS NEEDED TAKING ZONISAMIDE 50 MG CAPSULE 1 CAPSULE ORALLY THREE TIMES DAILY TAKING ALBUTEROL SULFATE HFA 108 (90 BASE) MCG/ACT AEROSOL SOLUTION 2 PUFFS NEEDED INHALATION EVERY 6 HRS TAKING CYCLOBENZAPRINE HCL 10 MG TABLET 1/2-1 TAB ORALLY Q6H PRN PAIN TAKING ARTHRITIS PAIN 650 MG TABLET EXTENDED RELEASE 2 TABLETS NEEDED ORALLY EVERY 8 HRS TAKING IMITREX 100 MG TABLET 1 TABLET NEEDED ORALLY TWICE A DAY NOT-TAKING TRAMADOL HCL 50 MG TABLET 1 TABLET NEEDED ORALLY EVERY 6 HRS NOT-TAKING TYLENOL 325 MG TABLET 1 TABLET NEEDED ORALLY EVERY 4 HRS NOT-TAKING IBUPROFEN 800 MG TABLET 1 TABLET WITH FOOD OR MILK NEEDED ORALLY NEEDED NOT-TAKING DIAZEPAM 5 MG TABLET 1 TABLET NEEDED ORALLY TAKE 1 TAB ONE HOUR PRIOR TO TEST, AND 1 TAB ON ARRIVA MDD=2L NOT-TAKING DEPAKOTE 500 MG TABLET DELAYED RELEASE 1 TABLET ORALLY ONCE A DAY NOT-TAKING ADVAIR DISKUS 250-50 MCG/DOSE AEROSOL POWDER BREATH ACTIVATED 1 PUFF INHALATION TWICE A DAY MEDICATION LIST REVIEWED AND RECONCILED WITH THE PATIENT PAST MEDICAL HISTORY ASTHMA MIGRAINE SEES VINCENT HAD MRI NO AURA SYNCOPAL EPISODES - STABLE CONCUSSION LAST JUN 2017 HEMOPHILIA A CARRIER ONLY DISLOCATED KNEE LEFT 06/2018 ALLERGIES TORADOL: BURNING IN HEAD - SIDE EFFECTS SPIDER BITES: LOCAL SWELLING - SIDE EFFECTS SURGICAL HISTORY REMOVAL EXTRA DIGITS EACH HAND AGE 3 MO T&A AGE 7 WISDOM TEETH REMOVED 2015 LEFT KNEE BONE FRAGMENT REMOVED 08/2018 FAMILY HISTORY FATHER: ALIVE 60 YRS, HEMOPHILIA MOTHER: ALIVE 61 YRS, HTN, BREAST CANCER, DIAGNOSED WITH HYPERTENSION, CANCER SIBLINGS: BROTHERS ALCOHOLISM, 1 SISTER AGE 6 WEEKS SIDS 2 BROTHER(S) , 2 SISTER(S) - HEALTHY. SOCIAL HISTORY GENERAL: TOBACCO USE ARE YOU A:NONSMOKER NEVER SMOKER OTHERS AT HOME: FATHER, MOTHER. 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 BMI CARE GOAL FOLLOW-UP ABOVE NORMAL BMI FOLLOW-UPGIVING ENCOURAGEMENT TO EXERCISE RECREATIONAL DRUG USE DRUG USE?NO LEARNING BARRIERS / SPECIAL NEEDS CHANGE FROM LAST VISIT?NO BARRIERS TO LEARNING?NO HEARING IMPAIRED?NO VISION IMPAIRED?YES COGNITIVELY IMPAIRED?NO :CORRECTIVE LENSES READINESS TO LEARN?YES LEARNING PREFERENCES?NO LEARNING CAPABILITIES PRESENT?YES EMOTIONAL BARRIERS?NO SPECIAL DEVICES?NO ARTIST CONSULTANT NEEDED?NO PAIN CLINIC PFS, CLERGY, PUBLIC HEALTH REFERRALS PFS REFERRAL NEEDED?NO CLERGY REFERRAL NEEDED?NO PUBLIC HEALTH REFERRAL NEEDED?NO HAS THE PATIENT BEEN EDUCATED REGARDING HIS/HER PLAN OF CARE?YES HAS THE PATIENT BEEN EDUCATED REGARDING PAIN, THE RISK FOR PAIN, THE IMPORTANCE OF EFFECTIVE PAIN MANAGEMENT, AND THE PAIN ASSESSMENT PROCESS?YES CAFFEINE CAFFEINE USE?YES HOW OFTEN AND HOW MUCH? 1 SODA 12 OZ ADVANCE DIRECTIVE ADVANCE DIRECTIVE DISCUSSED WITH PATIENT:YES MACHO LESTERHILARY [phone] GNOSTICIST [id number] NONE MARITAL STATUS: SINGLE. ALCOHOL SCREENING DID YOU HAVE A DRINK CONTAINING ALCOHOL IN THE PAST YEAR?YES HOW OFTEN DID YOU HAVE SIX OR MORE DRINKS ON ONE OCCASION IN THE PAST YEAR?NEVER (0 POINTS) HOW MANY DRINKS DID YOU HAVE ON A TYPICAL DAY WHEN YOU WERE DRINKING IN THE PAST YEAR?1 OR 2 (0 POINTS) HOW OFTEN DID YOU HAVE A DRINK CONTAINING ALCOHOL IN THE PAST YEAR?TWO TO FOUR TIMES A MONTH (2 POINTS) POINTS2 INTERPRETATIONNEGATIVE OCCUPATION: [employer] OFF[employer]. REVIEWED WITH PATIENT 11/25/18 0935 SJ. HOSPITALIZATION/MAJOR DIAGNOSTIC PROCEDURE DEHYDRATION 2002 ASTHMA 2005 SURGERY 05/1995 REVIEW OF SYSTEMS REVIEWED BY: PROVIDER: IMAN GARZA . CONSTITUTIONAL: ANY CHANGE IN YOUR MEDICAL CONDITION? NO . CHILLS NO . FEVER NO . INFECTION: DO YOU HAVE NEW INFECTIONS? NO . DO YOU HAVE HISTORY OF MRSA? NO . MUSCULOSKELETAL: ANY NEW PATTERNS OF PAIN OR NUMBNESS? NO . GASTROENTEROLOGY: ANY NEW CHANGE IN BOWEL CONTROL? NO . GENITOURINARY: ANY NEW CHANGE IN BLADDER CONTROL? NO . IS THERE A CHANCE YOU COULD BE ? NO . HEMATOLOGY/LYMPH: DO YOU TAKE ANY BLOOD THINNERS? (FOR EXAMPLE- COUMADIN, PLAVIX, AGGRENOX, PLATEL, PRADAXA, OR XARELTO) NO . WHEN WAS YOUR LAST DOSE? DATE: TIME: . NEUROLOGY: HAVE YOU FALLEN IN THE PAST 12 MONTHS? NO . ANY NEW EXTREMITY NUMBNESS OR WEAKNESS? NO . CARDIOLOGY: DO YOU HAVE A PACEMAKER OR DEFIBRILLATOR? NO . RESPIRATORY: HAVE YOU BEEN SICK IN THE PAST WEEK? NO . FEVER NO . FLU LIKE SYMPTOMS? NO . COUGH NO . INTEGUMENTARY: DO YOU HAVE ANY RASHES OR OPEN SORES? NO . ALLERGIC/IMMUNO: ARE YOU ALLERGIC TO IV DYE? NO . ANY NEW ALLERGIES? NO . PSYCHIATRIC: DO YOU HAVE THOUGHTS OF HURTING YOURSELF OR SOMEONE ELSE? NO . ARE YOU ABUSED, NEGLECTED, OR IN AN UNSAFE ENVIRONMENT? NO . ENDOCRINOLOGY: ARE YOU DIABETIC? NO . OTHER: DO YOU NEED ANY PRESCRIPTIONS? NO . IF YES, PLEASE LIST: ____ . ANY NEW PROBLEMS WITH YOUR MEDICATIONS? NO . WHEN DID YOU LAST EAT? ____ . WHEN DID YOU LAST DRINK? ____ . WHAT DID YOU LAST DRINK? ____ . NAME OF PERSON DRIVING YOU HOME? ____ . DO YOU HAVE ANY OTHER QUESTIONS OR CONCERNS NO . VITAL SIGNS WT 185.2 LBS, HT 62 IN, BMI 33.87 INDEX, BP 125/75 MM HG, HR 72 /MIN, RR 16 /MIN, TEMP 98.1 F, OXYGEN SAT % 97%, NA INITIALS SC 13:44, REVIEWED BY: EM. EXAMINATION GENERAL EXAMINATION: GENERAL APPEARANCE:AWAKE,ALERT ,PLEAASANT . PSYCHAFFECT NORMAL . LUNGS:LUNG FERREIRA ARE CLEAR TO AUSCULTATION BILATERALLY. GOOD MOVEMENT OF AIR . HEART:S1, S2 IN A REGULAR RATE AND RHYTHM. NO SIGNIFICANT MURMURS, RUBS OR GALLOPS NOTED . 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 IT IS NOT A COPY OF THE [employer] PROGRESS NOTE. MTDD
== END ==
LOC: M PAIN 13:30
PROVIDERS: ATTEND Nurse Practitioner Family
DX: M54.81 Occipital neuralgia (principal); J45.909 Unspecified asthma, uncomplicated; G43.909 Migraine, unspecified, not intractable, without status migrainosus; Z14.01 Asymptomatic hemophilia A carrier; Z88.8 Allergy status to other drugs, medicaments and biological substances; Z91.038 Other insect allergy status; Z87.820 Personal history of traumatic brain injury

== ENCOUNTER 2019-03-29 03:15 | Emergency (ER) | payer BC ==
[~2019-03-29] VITALS: Ht 157.5 cm; Wt 84.1 kg
[2019-03-29] MEDS ORDERED: NS 1,000 ML IV ONE (06:30)
[2019-03-29 07:03] LABS: BASO % 0.3 % (0.0-1.0); EOS % 0.2 % (0.0-3.0); HEMATOCRIT 38.7 % (36.0-47.0); LYMPH # 1.7 10^3/uL (1.5-6.5); LYMPH % 17.8 % (24.0-44.0); MEAN CORPUSCULAR HGB CONC 33.6 g/dl (32.0-36.5); MEAN CORPUSCULAR VOLUME 92.1 fl (80.0-96.0); MONO # 0.6 10^3/uL (0.0-0.8); MONO % 6.6 % (0.0-5.0); NEUTROPHILS # 6.9 10^3/uL (1.8-7.7); NEUTROPHILS % 73.6 % (36.0-66.0); PLATELET COUNT, AUTOMATED 260 10^3/uL (150-450); WHITE BLOOD COUNT 9.4 10^3/uL (4.0-10.0)
[2019-03-29 07:28] LABS: HCG, SERUM QUALITATIVE NEGATIVE (NEGATIVE)
[2019-03-29 07:30] LABS: AMPHETAMINES LEVEL URINE NEGATIVE (NEGATIVE); BARBITURATES URINE NEGATIVE (NEGATIVE); BENZODIAZEPINES URINE NEGATIVE (NEGATIVE); CANNABINOIDS URINE NEGATIVE (NEGATIVE); COCAINE METABOLITE URINE NEGATIVE (NEGATIVE); METHADONE URINE NEGATIVE (NEGATIVE); OPIATES URINE NEGATIVE (NEGATIVE); PHENCYCLIDINE URINE NEGATIVE (NEGATIVE)
[2019-03-29 07:34] LABS: BLOOD UREA NITROGEN 6 MG/DL (7-18); CARBON DIOXIDE LEVEL 26 MEQ/L (21-32); CHLORIDE LEVEL 108 MEQ/L (98-107); CK-MB VALUE MASS < 1.0 NG/ML (<3.6); CPK CREATINE PHOSPHOKINASE 116 U/L (26-192); FREE T4 0.96 NG/DL (0.76-1.46); GLOMERULAR FILTRATION RATE > 60.0 (>60); GLUCOSE, FASTING 103 MG/DL (70-100); MB/CK RELATIVE INDEX 0.86 (< OR =4); POTASSIUM SERUM 3.8 MEQ/L (3.5-5.1); SODIUM LEVEL 143 MEQ/L (136-145); TROPONIN I < 0.02 NG/ML (< 0.10)
--- NOTE | 2019-03-29 07:59 | REP ---
Clinical: chest pain. Comparison: 10/01/2012. Findings: The mediastinum and cardiac silhouette are stable and within normal limits for portable technique. The lung cruz are clear without acute consolidation, effusion, or pneumothorax. Skeletal structures are intact. Impression: No acute cardiopulmonary process appreciated. Electronically Signed by Abdifatah Reis MD 03/29/2019 07:51 A
[2019-03-29 08:00] VITALS: BP 127/73
--- NOTE | 2019-03-29 10:07 | ECGEPIP ---
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
== END 2019-03-29 08:26 | disposition home or self-care (01) ==
LOC: M ED 03:15
DX: R07.89 Other chest pain (principal); F12.10 Cannabis abuse, uncomplicated; J45.909 Unspecified asthma, uncomplicated; Z79.3 Long term (current) use of hormonal contraceptives; Z88.8 Allergy status to other drugs, medicaments and biological substances

== ENCOUNTER → 2019-03-31 | Outpatient (REF) | payer BC | LOC: M SFHCPLAZ 11:47 | PROVIDERS: ATTEND Family Medicine | DX: I10 Essential (primary) hypertension (principal) ==

== ENCOUNTER → 2019-04-22 | Outpatient (CLI) | payer BC | LOC: M LAB 12:24 | PROVIDERS: ATTEND Family Medicine | DX: I10 Essential (primary) hypertension (principal) ==

== ENCOUNTER → 2019-05-19 | Outpatient (CLI) | payer BC ==
--- NOTE | 2019-05-20 01:46 | ECWPNPC ---
PATIENT NAME: MONET LEDEZMA : 1995 GENDER: FEMALE VISIT DATE: 05/19/2019 DISCHARGE DATE: 05/19/19 1022 VISIT LOCKED DATE TIME: PHYSICIAN: IMAN GURROLA RESOURCE: IMAN GURROLA REASON FOR APPOINTMENT 1. NECK HISTORY OF PRESENT ILLNESS HISTORY OF PRESENT ILLNESS: HERE FOR F/U OF CHRONIC RIGHT OCCIPITAL PAIN.PAIN HAS ESCALATED OVER THE PAST 2 MONTHS.RATING PAIN VAS 2/10.PAIN CAN ESCALATE TO 8/10.PAIN IS DESCRIBED INTERMITTENT,SHARP AND ACHING.HAS RESPONDED WELL TO RIGHT GREATER OCCIPITAL BLOCK IN PAST. PAIN THE PATIENT DESCRIBES THE PAIN... FALL RISK SCREENING: SCREENING :NO FALLS REPORTED IN THE LAST YEAR CURRENT MEDICATIONS TAKING AMITRIPTYLINE HCL 50 MG TABLET 1 TABLET AT BEDTIME ORALLY ONCE A DAY TAKING NEXPLANON 68 MG IMPLANT LEFT ARM SUBCUTANEOUS IMPLANTED 07/2015 TAKING IMITREX 6 MG/0.5ML SOLUTION 0.5 ML NEEDED SUBCUTANEOUS NEEDED TAKING ZONISAMIDE 50 MG CAPSULE 1 CAPSULE ORALLY THREE TIMES DAILY TAKING ALBUTEROL SULFATE HFA 108 (90 BASE) MCG/ACT AEROSOL SOLUTION 2 PUFFS NEEDED INHALATION EVERY 6 HRS TAKING CYCLOBENZAPRINE HCL 10 MG TABLET 1/2-1 TAB ORALLY Q6H PRN PAIN TAKING ARTHRITIS PAIN 650 MG TABLET EXTENDED RELEASE 2 TABLETS NEEDED ORALLY EVERY 8 HRS TAKING IMITREX 100 MG TABLET 1 TABLET NEEDED ORALLY TWICE A DAY MEDICATION LIST REVIEWED AND RECONCILED WITH THE PATIENT PAST MEDICAL HISTORY ASTHMA MIGRAINE SEES NESANDRA HAD MRI NO AURA SYNCOPAL EPISODES - STABLE CONCUSSION LAST JUN 2017 HEMOPHILIA A CARRIER ONLY DISLOCATED KNEE LEFT 06/2018 ALLERGIES TORADOL: BURNING IN HEAD - SIDE EFFECTS SPIDER BITES: LOCAL SWELLING - SIDE EFFECTS SURGICAL HISTORY REMOVAL EXTRA DIGITS EACH HAND AGE 3 MO T&A AGE 7 WISDOM TEETH REMOVED 2015 LEFT KNEE BONE FRAGMENT REMOVED 08/2018 FAMILY HISTORY FATHER: ALIVE 60 YRS, HEMOPHILIA MOTHER: ALIVE 61 YRS, HTN, BREAST CANCER, DIAGNOSED WITH HYPERTENSION, CANCER SIBLINGS: BROTHERS ALCOHOLISM, 1 SISTER AGE 6 WEEKS SIDS 2 BROTHER(S) , 2 SISTER(S) - HEALTHY. SISTER- -SIDS. SOCIAL HISTORY GENERAL: TOBACCO USE ARE YOU A:NONSMOKER NEVER SMOKER HIV / HEP-C SCREENING HIV TEST OFFERED TO PATIENT:YES DATE OFFERED:03/31/2019 TEST ACCEPTED:NO HEP-C TEST OFFERED TO PATIENT:YES DATE OFFERED:03/31/2019 REASON:PATIENT DECLINED TEST ACCEPTED:NO REASON:PATIENT DECLINED BROCHURE PROVIDED TO PATIENTNO OTHERS AT HOME: FATHER, MOTHER. EDUCATION LEVEL OF EDUCATION:COLLEGE DIET: REGULAR. LANGUAGE DANISH. BMI CARE GOAL FOLLOW-UP ABOVE NORMAL BMI FOLLOW-UPGIVING ENCOURAGEMENT TO EXERCISE RECREATIONAL DRUG USE DRUG USE?NO EXERCISE: NO REGULAR EXERCISE. LEARNING BARRIERS / SPECIAL NEEDS BARRIERS TO LEARNING?NO HEARING IMPAIRED?NO VISION IMPAIRED?YES COGNITIVELY IMPAIRED?NO :CORRECTIVE LENSES READINESS TO LEARN?YES LEARNING PREFERENCES?NO LEARNING CAPABILITIES PRESENT?YES EMOTIONAL BARRIERS?NO SPECIAL DEVICES?NO COMMERCIAL ATTACHE NEEDED?NO PAIN CLINIC PFS, CLERGY, PUBLIC HEALTH REFERRALS PFS REFERRAL NEEDED?NO CLERGY REFERRAL NEEDED?NO PUBLIC HEALTH REFERRAL NEEDED?NO HAS THE PATIENT BEEN EDUCATED REGARDING HIS/HER PLAN OF CARE?YES HAS THE PATIENT BEEN EDUCATED REGARDING PAIN, THE RISK FOR PAIN, THE IMPORTANCE OF EFFECTIVE PAIN MANAGEMENT, AND THE PAIN ASSESSMENT PROCESS?YES LATEX QUESTIONNAIRE LATEX ALLERGY : HAVE YOU EVER DEVELOPED ANY TYPE OF REACTION AFTER HANDLING LATEX PRODUCTS SUCH RUBBER GLOVES, CONDOMS, DIAPHRAGMS, BALLOONS, SOCKS, OR UNDERWEAR?NO LATEX ALLERGY : HAVE YOU EVER DEVELOPED ANY TYPE OF REACTION DURING OR AFTER DENTAL APPOINTMENT, VAGINAL/RECTAL EXAMINATION, SURGICAL PROCEDURE, OR ANY OTHER EXPOSURE?NO DATE ASKED : 03/31/2019 LATEX RISK : HAVE YOU EVER HAD ANY DIFFICULTY BREATHING OR HIVES AFTER EATING OR HANDLING ANY FRUITS, OR VEGETABLES; SUCH KIWI, BANANAS, STONE FRUITS, OR CHESTNUTSNO LATEX RISK : DO YOU HAVE A PREVIOUS PERSONAL HISTORY OF MORE THAN NINE SURGERIES, SPINA BIFIDA, OR REPEATED CATHERIZATIONS? NO LATEX RISK : ARE YOU FREQUENTLY EXPOSED TO LATEX PRODUCTS IN YOUR OCCUPATION?YES CAFFEINE CAFFEINE USE?YES HOW OFTEN AND HOW MUCH? 1 SODA 12 OZ ADVANCE DIRECTIVE ADVANCE DIRECTIVE DISCUSSED WITH PATIENT:YES HCP IS MACHO AGUIRRE [phone] ZOROASTRIAN [id number] NONE NO CHEONDOISM BELIEFS THAT WOULD IMPACT HEALTH CARE. MARITAL STATUS: SINGLE. 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 SEXUAL HX HAD SEX IN THE LAST 12 MONTHS (VAGINAL, ORAL, OR ANAL)?YES WITHMEN ONLY PREVENTION STRATEGIES DISCUSSED:OTHER USE PROTECTION?YES HOW OFTEN?ALL OF THE TIME HAVE YOU EVER HAD AN STD?NO REVIEWED WITH PATIENT 11/25/18 0935 SJREVIEWED WITH PATIENT 05/19/19 0917 BV. HOSPITALIZATION/MAJOR DIAGNOSTIC PROCEDURE DEHYDRATION 2002 ASTHMA 2005 SURGERY 05/1995 REVIEW OF SYSTEMS REVIEWED BY: PROVIDER: IMAN GARZA . CONSTITUTIONAL: ANY CHANGE IN YOUR MEDICAL CONDITION? YES, DR. ARANGO DID BOTOX IN EARLY MARCH. STATES MIGRAINES HAVE IMPROVED SINCE THEN. SCHEDULED FOR FOLLOWUP ON MAY 29. . CHILLS NO . FEVER NO . INFECTION: DO YOU HAVE NEW INFECTIONS? NO . DO YOU HAVE HISTORY OF MRSA? NO . MUSCULOSKELETAL: ANY NEW PATTERNS OF PAIN OR NUMBNESS? NO . GASTROENTEROLOGY: ANY NEW CHANGE IN BOWEL CONTROL? NO . GENITOURINARY: ANY NEW CHANGE IN BLADDER CONTROL? NO . IS THERE A CHANCE YOU COULD BE ? NO . HEMATOLOGY/LYMPH: DO YOU TAKE ANY BLOOD THINNERS? (FOR EXAMPLE- COUMADIN, PLAVIX, AGGRENOX, PLATEL, PRADAXA, OR XARELTO) NO . WHEN WAS YOUR LAST DOSE? DATE: TIME: . NEUROLOGY: HAVE YOU FALLEN IN THE PAST 12 MONTHS? NO . ANY NEW EXTREMITY NUMBNESS OR WEAKNESS? NO . CARDIOLOGY: DO YOU HAVE A PACEMAKER OR DEFIBRILLATOR? NO . RESPIRATORY: HAVE YOU BEEN SICK IN THE PAST WEEK? NO . FEVER NO . FLU LIKE SYMPTOMS? NO . COUGH NO . INTEGUMENTARY: DO YOU HAVE ANY RASHES OR OPEN SORES? NO . ALLERGIC/IMMUNO: ARE YOU ALLERGIC TO IV DYE? NO . ANY NEW ALLERGIES? NO . PSYCHIATRIC: DO YOU HAVE THOUGHTS OF HURTING YOURSELF OR SOMEONE ELSE? NO . ARE YOU ABUSED, NEGLECTED, OR IN AN UNSAFE ENVIRONMENT? NO . ENDOCRINOLOGY: ARE YOU DIABETIC? NO . OTHER: DO YOU NEED ANY PRESCRIPTIONS? NO . IF YES, PLEASE LIST: ____ . ANY NEW PROBLEMS WITH YOUR MEDICATIONS? NO . WHEN DID YOU LAST EAT? ____ . WHEN DID YOU LAST DRINK? ____ . WHAT DID YOU LAST DRINK? ____ . NAME OF PERSON DRIVING YOU HOME? ____ . DO YOU HAVE ANY OTHER QUESTIONS OR CONCERNS NO . VITAL SIGNS WT 183.8 LBS, HT 62 IN, BMI 33.61 INDEX, BP 134/87 MM HG, HR 96 /MIN, RR 18 /MIN, TEMP 96.5 F, OXYGEN SAT % 97%, NA INITIALS SC 09:16, REVIEWED BY: BV. EXAMINATION GENERAL EXAMINATION: GENERALAWAKE,ALERT ,PLEAASANT . PSYCHAFFECT NORMAL . LUNGS:LUNG FERREIRA ARE CLEAR TO AUSCULTATION BILATERALLY. GOOD MOVEMENT OF AIR . HEART:S1, S2 IN A REGULAR RATE AND RHYTHM. NO SIGNIFICANT MURMURS, RUBS OR GALLOPS NOTED . 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 PREVENTIVE MEDICINE PAIN CLINIC TEACHING: PROCEDURE TEACHING PT GIVEN WRITTEN AND VERBAL PRE PROCEDURE INSTRUCTIONS. PT VERBALIZES UNDERSTANDING OF ALL INSTUCTIONS. SHAHLA HARRELL 05/19/2019 10:12:50 AM > . PROCEDURE CODES FA211 ESTABILISHED PATIENT [facility] FACILITY CHARGE DISPOSITION & COMMUNICATION FOLLOW UP POST (REASON: RIGHT GREATER OCCIPITAL BLOCK) ELECTRONICALLY SIGNED BY KAYLA WYMAN ON 05/19/2019 AT 10:27 AM EDT DISCLAIMER : THIS IS A VISIT SUMMARY EXTRACTED FROM THE [employer] CHART. IT IS NOT A COPY OF THE [employer] PROGRESS NOTE. JUAREZ
== END ==
LOC: M PAIN 09:15
PROVIDERS: ATTEND Nurse Practitioner Family
DX: M54.81 Occipital neuralgia (principal); J45.909 Unspecified asthma, uncomplicated; G43.909 Migraine, unspecified, not intractable, without status migrainosus; Z79.899 Other long term (current) drug therapy; Z88.8 Allergy status to other drugs, medicaments and biological substances; Z91.048 Other nonmedicinal substance allergy status

== ENCOUNTER → 2019-05-22 | Outpatient (CLI) | payer BC ==
[~2019-05-22] MED LIST changes: +BUPIVACAINE HCL 0.25% 10 ML VIAL As Ordered ONE; +BUPIVACAINE HCL 0.25% 30 ML VIAL As Ordered ONE; +TRIAMCINOLONE ACETONIDE SUSP 40 MG/ML VIAL (J3301) As Ordered ONE; +diazePAM 5 MG TAB As Ordered ONE; +oxyCODONE 5MG TAB As Ordered ONE
--- NOTE | 2019-06-02 23:54 | ECWPNPC ---
PATIENT NAME: MONET LEDEZMA : 1995 GENDER: FEMALE VISIT DATE: 05/22/2019 DISCHARGE DATE: 05/22/19 1404 VISIT LOCKED DATE TIME: PHYSICIAN: MADDI RICHARD MD RESOURCE: MADDI RICHARD MD REASON FOR APPOINTMENT 1. RIGHT GREATER OCCIPITAL BLOCK HISTORY OF PRESENT ILLNESS HISTORY OF PRESENT ILLNESS: PAIN THE PATIENT DESCRIBES THE PAIN... FALL RISK SCREENING: SCREENING :NO FALLS REPORTED IN THE LAST YEAR CURRENT MEDICATIONS TAKING AMITRIPTYLINE HCL 50 MG TABLET 1 TABLET AT BEDTIME ORALLY ONCE A DAY, NOTES: 05/22/192199 TAKING NEXPLANON 68 MG IMPLANT LEFT ARM SUBCUTANEOUS IMPLANTED 07/2015 TAKING IMITREX 6 MG/0.5ML SOLUTION 0.5 ML NEEDED SUBCUTANEOUS NEEDED, NOTES: NONE RECENT TAKING ZONISAMIDE 50 MG CAPSULE 1 CAPSULE ORALLY THREE TIMES DAILY, NOTES: 05/22/19 0730 TAKING ALBUTEROL SULFATE HFA 108 (90 BASE) MCG/ACT AEROSOL SOLUTION 2 PUFFS NEEDED INHALATION EVERY 6 HRS, NOTES: NONE RECENT TAKING CYCLOBENZAPRINE HCL 10 MG TABLET 1/2-1 TAB ORALLY Q6H PRN PAIN, NOTES: NONE RECENT TAKING ARTHRITIS PAIN 650 MG TABLET EXTENDED RELEASE 2 TABLETS NEEDED ORALLY EVERY 8 HRS, NOTES: 5 DAYS AGO TAKING IMITREX 100 MG TABLET 1 TABLET NEEDED ORALLY TWICE A DAY, NOTES: NONE RECENT MEDICATION LIST REVIEWED AND RECONCILED WITH THE PATIENT PAST MEDICAL HISTORY ASTHMA MIGRAINE SEES VINCENT HAD MRI NO AURA SYNCOPAL EPISODES - STABLE CONCUSSION LAST JUN 2017 HEMOPHILIA A CARRIER ONLY DISLOCATED KNEE LEFT 06/2018 ALLERGIES TORADOL: BURNING IN HEAD - SIDE EFFECTS SPIDER BITES: LOCAL SWELLING - SIDE EFFECTS SURGICAL HISTORY REMOVAL EXTRA DIGITS EACH HAND AGE 3 MO T&A AGE 7 WISDOM TEETH REMOVED 2015 LEFT KNEE BONE FRAGMENT REMOVED 08/2018 FAMILY HISTORY FATHER: ALIVE 60 YRS, HEMOPHILIA MOTHER: ALIVE 61 YRS, HTN, BREAST CANCER, DIAGNOSED WITH HYPERTENSION, CANCER SIBLINGS: BROTHERS ALCOHOLISM, 1 SISTER AGE 6 WEEKS SIDS 2 BROTHER(S) , 2 SISTER(S) - HEALTHY. SISTER- -SIDS. SOCIAL HISTORY GENERAL: TOBACCO USE ARE YOU A:NONSMOKER NEVER SMOKER HIV / HEP-C SCREENING HIV TEST OFFERED TO PATIENT:YES DATE OFFERED:03/31/2019 TEST ACCEPTED:NO HEP-C TEST OFFERED TO PATIENT:YES DATE OFFERED:03/31/2019 REASON:PATIENT DECLINED TEST ACCEPTED:NO REASON:PATIENT DECLINED BROCHURE PROVIDED TO PATIENTNO OTHERS AT HOME: FATHER, MOTHER. EDUCATION LEVEL OF EDUCATION:COLLEGE DIET: REGULAR. LANGUAGE GUYANESE. BMI CARE GOAL FOLLOW-UP ABOVE NORMAL BMI FOLLOW-UPGIVING ENCOURAGEMENT TO EXERCISE RECREATIONAL DRUG USE DRUG USE?NO EXERCISE: NO REGULAR EXERCISE. LEARNING BARRIERS / SPECIAL NEEDS BARRIERS TO LEARNING?NO HEARING IMPAIRED?NO VISION IMPAIRED?YES COGNITIVELY IMPAIRED?NO :CORRECTIVE LENSES READINESS TO LEARN?YES LEARNING PREFERENCES?NO LEARNING CAPABILITIES PRESENT?YES EMOTIONAL BARRIERS?NO SPECIAL DEVICES?NO TRANSPORTATION CLERK NEEDED?NO PAIN CLINIC PFS, CLERGY, PUBLIC HEALTH REFERRALS PFS REFERRAL NEEDED?NO CLERGY REFERRAL NEEDED?NO PUBLIC HEALTH REFERRAL NEEDED?NO HAS THE PATIENT BEEN EDUCATED REGARDING HIS/HER PLAN OF CARE?YES HAS THE PATIENT BEEN EDUCATED REGARDING PAIN, THE RISK FOR PAIN, THE IMPORTANCE OF EFFECTIVE PAIN MANAGEMENT, AND THE PAIN ASSESSMENT PROCESS?YES LATEX QUESTIONNAIRE LATEX ALLERGY : HAVE YOU EVER DEVELOPED ANY TYPE OF REACTION AFTER HANDLING LATEX PRODUCTS SUCH RUBBER GLOVES, CONDOMS, DIAPHRAGMS, BALLOONS, SOCKS, OR UNDERWEAR?NO LATEX ALLERGY : HAVE YOU EVER DEVELOPED ANY TYPE OF REACTION DURING OR AFTER DENTAL APPOINTMENT, VAGINAL/RECTAL EXAMINATION, SURGICAL PROCEDURE, OR ANY OTHER EXPOSURE?NO DATE ASKED : 03/31/2019 LATEX RISK : HAVE YOU EVER HAD ANY DIFFICULTY BREATHING OR HIVES AFTER EATING OR HANDLING ANY FRUITS, OR VEGETABLES; SUCH KIWI, BANANAS, STONE FRUITS, OR CHESTNUTSNO LATEX RISK : DO YOU HAVE A PREVIOUS PERSONAL HISTORY OF MORE THAN NINE SURGERIES, SPINA BIFIDA, OR REPEATED CATHERIZATIONS? NO LATEX RISK : ARE YOU FREQUENTLY EXPOSED TO LATEX PRODUCTS IN YOUR OCCUPATION?YES CAFFEINE CAFFEINE USE?YES HOW OFTEN AND HOW MUCH? 1 SODA 12 OZ ADVANCE DIRECTIVE ADVANCE DIRECTIVE DISCUSSED WITH PATIENT:YES HCP IS MACHO AGUIRRE [phone] QUAKER [id number] NONE NO HOAHAOISM BELIEFS THAT WOULD IMPACT HEALTH CARE. MARITAL STATUS: SINGLE. 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 SEXUAL HX HAD SEX IN THE LAST 12 MONTHS (VAGINAL, ORAL, OR ANAL)?YES WITHMEN ONLY PREVENTION STRATEGIES DISCUSSED:OTHER USE PROTECTION?YES HOW OFTEN?ALL OF THE TIME HAVE YOU EVER HAD AN STD?NO REVIEWED WITH PATIENT 11/25/18 0935 SJREVIEWED WITH PATIENT 05/19/19 0917 BVREVIEWED WITH PATIENT 05/22/19 1116 BV. HOSPITALIZATION/MAJOR DIAGNOSTIC PROCEDURE DEHYDRATION 2001 ASTHMA 2005 SURGERY 05/1995 REVIEW OF SYSTEMS REVIEWED BY: PROVIDER: . CONSTITUTIONAL: ANY CHANGE IN YOUR MEDICAL CONDITION? NO . CHILLS NO . FEVER NO . INFECTION: DO YOU HAVE NEW INFECTIONS? NO . DO YOU HAVE HISTORY OF MRSA? NO . MUSCULOSKELETAL: ANY NEW PATTERNS OF PAIN OR NUMBNESS? NO . GASTROENTEROLOGY: ANY NEW CHANGE IN BOWEL CONTROL? NO . GENITOURINARY: ANY NEW CHANGE IN BLADDER CONTROL? NO . IS THERE A CHANCE YOU COULD BE ? NO . HEMATOLOGY/LYMPH: DO YOU TAKE ANY BLOOD THINNERS? (FOR EXAMPLE- COUMADIN, PLAVIX, AGGRENOX, PLATEL, PRADAXA, OR XARELTO) NO . WHEN WAS YOUR LAST DOSE? DATE: TIME: . NEUROLOGY: HAVE YOU FALLEN IN THE PAST 12 MONTHS? NO . ANY NEW EXTREMITY NUMBNESS OR WEAKNESS? NO . CARDIOLOGY: DO YOU HAVE A PACEMAKER OR DEFIBRILLATOR? NO . RESPIRATORY: HAVE YOU BEEN SICK IN THE PAST WEEK? NO . FEVER NO . FLU LIKE SYMPTOMS? NO . COUGH NO . INTEGUMENTARY: DO YOU HAVE ANY RASHES OR OPEN SORES? NO . ALLERGIC/IMMUNO: ARE YOU ALLERGIC TO IV DYE? NO . ANY NEW ALLERGIES? NO . PSYCHIATRIC: DO YOU HAVE THOUGHTS OF HURTING YOURSELF OR SOMEONE ELSE? NO . ARE YOU ABUSED, NEGLECTED, OR IN AN UNSAFE ENVIRONMENT? NO . ENDOCRINOLOGY: ARE YOU DIABETIC? NO . OTHER: DO YOU NEED ANY PRESCRIPTIONS? NO . IF YES, PLEASE LIST: ____ . ANY NEW PROBLEMS WITH YOUR MEDICATIONS? NO . WHEN DID YOU LAST EAT? 05/21/19 2100 . WHEN DID YOU LAST DRINK? 05/22/19 0740 . WHAT DID YOU LAST DRINK? WATER . NAME OF PERSON DRIVING YOU HOME? MADDY-MOTHER . DO YOU HAVE ANY OTHER QUESTIONS OR CONCERNS NO . VITAL SIGNS WT 183.8 LBS, HT 62 IN, BMI 33.61 INDEX, BP 129/81 MM HG, HR 87 /MIN, RR 18 /MIN, TEMP 97.9 F, OXYGEN SAT % 100%, NA INITIALS SC 11:01, REVIEWED BY: BV. 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 POST PROCEDURE DIAGNOSIS OCCIPITAL NEURALGIA. PROCEDURE RIGHT GREATER OCCIPITAL NERVE BLOCK SURGEON DR. 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 THE PAIN IS LOCATED OVER THE OCCIPITAL AREA WITH RADIATION TOWARDS THE PARIETAL AREA OF THE CRANIUM. I EVALUATED THE PATIENT AND REVIEWED THE CHART. I WENT OVER THE RISKS, ALTERNATIVES, AND BENEFITS ASSOCIATED WITH THIS PROCEDURE. THE PATIENT WOULD LIKE TO PROCEED AND GAVE CONSENT TO PERFORM THE PROCEDURE. THE PATIENT DENIES UNEXPLAINABLE WEIGHT LOSS, FEVER, CHILLS, OR NEW CHANGES IN URINARY OR BOWEL CONTROL. DESCRIPTION OF PROCEDURE THE PATIENT WAS BROUGHT TO THE PROCEDURE ROOM AND PLACED IN THE SITTING POSITION. THE RIGHT OCCIPITAL AREA WAS CLEANED WITH ALCOHOL. THE PROCEDURE WAS DONE USING STERILE TECHNIQUES. I CHECKED LATERALITY AND THE LEVEL WHERE THE PROCEDURE WAS GOING TO BE PERFORMED WITH THE PATIENT AND THE SUPPORTING STAFF AT THE MOMENT OF THE TIME OUT IN THE PROCEDURE ROOM. USING A 25-GAUGE NEEDLE, THE RIGHT OCCIPITAL NERVE WAS INJECTED AT THE NUCHAL LINE, 1-INCH LATERAL OF MIDLINE. I USED A TOTAL OF 15 ML OF BUPIVACAINE 0.25% WITH KENALOG 30 MG. THERE WAS NO EVIDENCE OF BLOOD, PARESTHESIA OR CEREBROSPINAL FLUID DURING THE PROCEDURE. THE PATIENT WAS SENT TO THE RECOVERY ROOM. THE PATIENT WAS MOVING THE EXTREMITIES AND DOING WELL. THERE WAS NO COMPLICATION DURING THE PROCEDURE. POST PROCEDURE NOTE THE PATIENT WILL BE SEEN IN A FOLLOW UP IN THE NEXT FEW WEEKS. INSTRUCTIONS WERE GIVEN, QUESTIONS WERE ANSWERED, AND THE PATIENT EXPRESSED UNDERSTANDING AND AGREED WITH THE PLAN. I, SHAILA FERNÁNDEZ, DOCUMENTED THE ABOVE INFORMATION ACTING A SCRIBE FOR DR. RICHARD. I HAVE REVIEWED THE ABOVE DOCUMENT, WRITTEN BY SHAILA FERNÁNDEZ SCRIBMagdaleno AND I VERIFY THAT IT IS ACCURATE. PROCEDURE CODES 91593 N BLOCK INJ OCCIPITAL, MODIFIERS: RT DISPOSITION & COMMUNICATION FOLLOW UP 3 WEEKS ELECTRONICALLY SIGNED BY MADDI RICHARD MD, MD ON 06/02/2019 AT 01:18 PM EDT DISCLAIMER : THIS IS A VISIT SUMMARY EXTRACTED FROM THE [employer] CHART. IT IS NOT A COPY OF THE [employer] PROGRESS NOTE. JUAREZ
== END ==
LOC: M PAIN 11:00
PROVIDERS: ATTEND Anesthesiology
DX: M54.81 Occipital neuralgia (principal); J45.909 Unspecified asthma, uncomplicated; G43.909 Migraine, unspecified, not intractable, without status migrainosus; Z79.899 Other long term (current) drug therapy; Z88.8 Allergy status to other drugs, medicaments and biological substances; Z91.048 Other nonmedicinal substance allergy status; Z14.01 Asymptomatic hemophilia A carrier
CPT/HCPCS: 64405; J3301

== ENCOUNTER → 2019-09-18 | Outpatient (CLI) | payer BC ==
[~2019-09-18] MED LIST changes: -BUPIVACAINE HCL 0.25% 10 ML VIAL As Ordered ONE; -BUPIVACAINE HCL 0.25% 30 ML VIAL As Ordered ONE; -TRIAMCINOLONE ACETONIDE SUSP 40 MG/ML VIAL (J3301) As Ordered ONE; -diazePAM 5 MG TAB As Ordered ONE; -oxyCODONE 5MG TAB As Ordered ONE
--- NOTE | 2019-10-07 01:25 | ECWPNPC ---
PATIENT NAME: MONET LEDEZMA : 1995 GENDER: FEMALE VISIT DATE: 09/18/2019 DISCHARGE DATE: 09/18/19 1359 VISIT LOCKED DATE TIME: PHYSICIAN: IMAN GURROLA RESOURCE: IMAN GURROLA REASON FOR APPOINTMENT 1. POST PROCEDURE HISTORY OF PRESENT ILLNESS HISTORY OF PRESENT ILLNESS: HERE FOR F/U OF CHRONIC RIGHT OCCIPITAL PAIN.PAIN HAS ESCALATED OVER THE PAST 2 MONTHS.RATING PAIN VAS 0-8/10.PAIN IS DESCRIBED INTERMITTENT,SHARP AND ACHING.HAS RESPONDED WELL TO RIGHT GREATER OCCIPITAL BLOCK IN PAST. PAIN THE PATIENT DESCRIBES THE PAIN... THE PATIENT DESCRIBES THE PAIN... FALL RISK SCREENING: SCREENING :NO FALLS REPORTED IN THE LAST YEAR CURRENT MEDICATIONS TAKING AMITRIPTYLINE HCL 50 MG TABLET 1 TABLET AT BEDTIME ORALLY ONCE A DAY TAKING NEXPLANON 68 MG IMPLANT LEFT ARM SUBCUTANEOUS IMPLANTED 07/2015 TAKING IMITREX 6 MG/0.5ML SOLUTION 0.5 ML NEEDED SUBCUTANEOUS NEEDED TAKING ZONISAMIDE 50 MG CAPSULE 1 CAPSULE ORALLY THREE TIMES DAILY TAKING ALBUTEROL SULFATE HFA 108 (90 BASE) MCG/ACT AEROSOL SOLUTION 2 PUFFS NEEDED INHALATION EVERY 6 HRS TAKING CYCLOBENZAPRINE HCL 10 MG TABLET 1/2-1 TAB ORALLY Q6H PRN PAIN TAKING ARTHRITIS PAIN 650 MG TABLET EXTENDED RELEASE 2 TABLETS NEEDED ORALLY EVERY 8 HRS TAKING IMITREX 100 MG TABLET 1 TABLET NEEDED ORALLY TWICE A DAY MEDICATION LIST REVIEWED AND RECONCILED WITH THE PATIENT PAST MEDICAL HISTORY ASTHMA MIGRAINE SEES NEIRO HAD MRI NO AURA SYNCOPAL EPISODES - STABLE CONCUSSION LAST JUN 2017 HEMOPHILIA A CARRIER ONLY DISLOCATED KNEE LEFT 06/2018 ALLERGIES TORADOL: BURNING IN HEAD - SIDE EFFECTS SPIDER BITES: LOCAL SWELLING - SIDE EFFECTS SURGICAL HISTORY REMOVAL EXTRA DIGITS EACH HAND AGE 3 MO T&A AGE 7 WISDOM TEETH REMOVED 2015 LEFT KNEE BONE FRAGMENT REMOVED 08/2018 FAMILY HISTORY FATHER: ALIVE 60 YRS, HEMOPHILIA MOTHER: ALIVE 61 YRS, HTN, BREAST CANCER, DIAGNOSED WITH HYPERTENSION, OTHER MALIGNANT NEOPLASM OF UNSPECIFIED SITE SIBLINGS: BROTHERS ALCOHOLISM, 1 SISTER AGE 6 WEEKS SIDS 2 BROTHER(S) , 2 SISTER(S) - HEALTHY. SISTER- -SIDS. SOCIAL HISTORY GENERAL: TOBACCO USE ARE YOU A:NONSMOKER NEVER SMOKER HIV / HEP-C SCREENING HIV TEST OFFERED TO PATIENT:YES DATE OFFERED:03/31/2019 TEST ACCEPTED:NO HEP-C TEST OFFERED TO PATIENT:YES DATE OFFERED:03/31/2019 REASON:PATIENT DECLINED TEST ACCEPTED:NO REASON:PATIENT DECLINED BROCHURE PROVIDED TO PATIENTNO OTHERS AT HOME: FATHER, MOTHER. EDUCATION LEVEL OF EDUCATION:COLLEGE DIET: REGULAR. LANGUAGE ST HELENIAN. BMI CARE GOAL FOLLOW-UP ABOVE NORMAL BMI FOLLOW-UPGIVING ENCOURAGEMENT TO EXERCISE RECREATIONAL DRUG USE DRUG USE?NO EXERCISE: NO REGULAR EXERCISE. LEARNING BARRIERS / SPECIAL NEEDS BARRIERS TO LEARNING?NO HEARING IMPAIRED?NO VISION IMPAIRED?YES COGNITIVELY IMPAIRED?NO :CORRECTIVE LENSES READINESS TO LEARN?YES LEARNING PREFERENCES?NO LEARNING CAPABILITIES PRESENT?YES EMOTIONAL BARRIERS?NO SPECIAL DEVICES?NO WHALE FISHERMAN NEEDED?NO PAIN CLINIC PFS, CLERGY, PUBLIC HEALTH REFERRALS PFS REFERRAL NEEDED?NO CLERGY REFERRAL NEEDED?NO PUBLIC HEALTH REFERRAL NEEDED?NO HAS THE PATIENT BEEN EDUCATED REGARDING HIS/HER PLAN OF CARE?YES HAS THE PATIENT BEEN EDUCATED REGARDING PAIN, THE RISK FOR PAIN, THE IMPORTANCE OF EFFECTIVE PAIN MANAGEMENT, AND THE PAIN ASSESSMENT PROCESS?YES LATEX QUESTIONNAIRE LATEX ALLERGY : HAVE YOU EVER DEVELOPED ANY TYPE OF REACTION AFTER HANDLING LATEX PRODUCTS SUCH RUBBER GLOVES, CONDOMS, DIAPHRAGMS, BALLOONS, SOCKS, OR UNDERWEAR?NO LATEX ALLERGY : HAVE YOU EVER DEVELOPED ANY TYPE OF REACTION DURING OR AFTER DENTAL APPOINTMENT, VAGINAL/RECTAL EXAMINATION, SURGICAL PROCEDURE, OR ANY OTHER EXPOSURE?NO LATEX RISK : HAVE YOU EVER HAD ANY DIFFICULTY BREATHING OR HIVES AFTER EATING OR HANDLING ANY FRUITS, OR VEGETABLES; SUCH KIWI, BANANAS, STONE FRUITS, OR CHESTNUTSNO LATEX RISK : DO YOU HAVE A PREVIOUS PERSONAL HISTORY OF MORE THAN NINE SURGERIES, SPINA BIFIDA, OR REPEATED CATHERIZATIONS? NO LATEX RISK : ARE YOU FREQUENTLY EXPOSED TO LATEX PRODUCTS IN YOUR OCCUPATION?YES DATE ASKED : 03/31/2019 CAFFEINE CAFFEINE USE?YES HOW OFTEN AND HOW MUCH? 1 SODA 12 OZ ADVANCE DIRECTIVE ADVANCE DIRECTIVE DISCUSSED WITH PATIENT:YES HCP IS MACHO AGUIRRE [phone] RASTAFARI [id number] NONE NO ISLAM BELIEFS THAT WOULD IMPACT HEALTH CARE. MARITAL STATUS: SINGLE. 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 SEXUAL HX HAD SEX IN THE LAST 12 MONTHS (VAGINAL, ORAL, OR ANAL)?YES WITHMEN ONLY PREVENTION STRATEGIES DISCUSSED:OTHER USE PROTECTION?YES HOW OFTEN?ALL OF THE TIME HAVE YOU EVER HAD AN STD?NO REVIEWED WITH PATIENT 11/25/18 0935 SJREVIEWED WITH PATIENT 05/19/19 0917 BVREVIEWED WITH PATIENT 05/22/19 1116 BVREVIEWED WITH PATIENT 09/18/19 1309 JS. HOSPITALIZATION/MAJOR DIAGNOSTIC PROCEDURE DEHYDRATION 2001 ASTHMA 2005 SURGERY 05/1995 REVIEW OF SYSTEMS REVIEWED BY: PROVIDER: IMAN GARZA . CONSTITUTIONAL: ANY CHANGE IN YOUR MEDICAL CONDITION? NO . CHILLS NO . FEVER NO . INFECTION: DO YOU HAVE NEW INFECTIONS? NO . DO YOU HAVE HISTORY OF MRSA? NO . MUSCULOSKELETAL: ANY NEW PATTERNS OF PAIN OR NUMBNESS? YES, STATES AN INCREASE IN PAIN . GASTROENTEROLOGY: ANY NEW CHANGE IN BOWEL CONTROL? NO . GENITOURINARY: ANY NEW CHANGE IN BLADDER CONTROL? NO . IS THERE A CHANCE YOU COULD BE ? NO . HEMATOLOGY/LYMPH: DO YOU TAKE ANY BLOOD THINNERS? (FOR EXAMPLE- COUMADIN, PLAVIX, AGGRENOX, PLATEL, PRADAXA, OR XARELTO) NO . WHEN WAS YOUR LAST DOSE? DATE: TIME: . NEUROLOGY: HAVE YOU FALLEN IN THE PAST 12 MONTHS? NO . ANY NEW EXTREMITY NUMBNESS OR WEAKNESS? NO . CARDIOLOGY: DO YOU HAVE A PACEMAKER OR DEFIBRILLATOR? NO . RESPIRATORY: HAVE YOU BEEN SICK IN THE PAST WEEK? NO . FEVER NO . FLU LIKE SYMPTOMS? NO . COUGH NO . INTEGUMENTARY: DO YOU HAVE ANY RASHES OR OPEN SORES? NO . ALLERGIC/IMMUNO: ARE YOU ALLERGIC TO IV DYE? NO . ANY NEW ALLERGIES? NO . PSYCHIATRIC: DO YOU HAVE THOUGHTS OF HURTING YOURSELF OR SOMEONE ELSE? NO . ARE YOU ABUSED, NEGLECTED, OR IN AN UNSAFE ENVIRONMENT? NO . ENDOCRINOLOGY: ARE YOU DIABETIC? NO . OTHER: DO YOU NEED ANY PRESCRIPTIONS? NO . IF YES, PLEASE LIST: ____ . ANY NEW PROBLEMS WITH YOUR MEDICATIONS? NO . WHEN DID YOU LAST EAT? ____ . WHEN DID YOU LAST DRINK? ____ . WHAT DID YOU LAST DRINK? ____ . NAME OF PERSON DRIVING YOU HOME? ____ . DO YOU HAVE ANY OTHER QUESTIONS OR CONCERNS NO . VITAL SIGNS WT 183.0 LBS, HT 62 IN, BMI 33.47 INDEX, BP 136/88 MM HG, HR 104 /MIN, RR 18 /MIN, TEMP 97.5 F, OXYGEN SAT % 98%, SAFE IN ENV? (Y/N) YES, NA INITIALS AW 1305, REVIEWED BY: NICOLE. EXAMINATION GENERAL EXAMINATION: GENERALAWAKE,ALERT ,PLEAASANT . PSYCHAFFECT NORMAL . LUNGS:LUNG FERREIRA ARE CLEAR TO AUSCULTATION BILATERALLY. GOOD MOVEMENT OF AIR . HEART:S1, S2 IN A REGULAR RATE AND RHYTHM. NO SIGNIFICANT MURMURS, RUBS OR GALLOPS NOTED . 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 PROCEDURE CODES [id number] ESTABILISHED PATIENT [facility] FACILITY CHARGE DISPOSITION & COMMUNICATION FOLLOW UP POST (REASON: RIGHT GREATER OCCIPITAL NERVE BLOCK) ELECTRONICALLY SIGNED BY KAYLA WYMAN ON 10/06/2019 AT 04:13 PM EST DISCLAIMER : THIS IS A VISIT SUMMARY EXTRACTED FROM THE [employer] CHART. IT IS NOT A COPY OF THE [employer] PROGRESS NOTE. JUAREZ
== END ==
LOC: M PAIN 13:00
PROVIDERS: ATTEND Nurse Practitioner Family
DX: M54.81 Occipital neuralgia (principal); G89.29 Other chronic pain; J45.909 Unspecified asthma, uncomplicated; G43.909 Migraine, unspecified, not intractable, without status migrainosus; Z88.6 Allergy status to analgesic agent; Z91.038 Other insect allergy status; Z79.899 Other long term (current) drug therapy

== ENCOUNTER 2019-11-17 11:59 | Emergency (ER) | payer BC ==
[~2019-11-17] VITALS: Ht 157.5 cm; Wt 84.1 kg
[~2019-11-17 11:59] MED LIST changes: +ZONI50CA11 PO; -ZONI50CA3 PO
[2019-11-17 12:00] VITALS: BP 137/90
[2019-11-17] MEDS ORDERED: SUMA100T2 (12:12)
== END 2019-11-17 17:35 | disposition left against medical advice (07) ==
LOC: M ED 11:59
DX: Z53.21 Procedure and treatment not carried out due to patient leaving prior to being seen by health care provider (principal)

== ENCOUNTER → 2020-09-20 | Outpatient (REF) | payer BC ==
[~2020-09-20] MED LIST changes: +SUMA100T2
[2020-09-20 13:10] LABS: HCG, SERUM QUALITATIVE NEGATIVE (NEGATIVE)
[2020-09-20 13:24] LABS: FREE T4 1.03 NG/DL (0.76-1.46)
== END ==
LOC: M SFHCPLAZ 09:44
PROVIDERS: ATTEND Family Medicine
DX: N92.6 Irregular menstruation, unspecified (principal)

== ENCOUNTER 2020-10-25 15:07 | Outpatient (RCR) | payer BC | END 2020-10-27 | LOC: M OUTALCOH 15:07 | PROVIDERS: ATTEND Psychiatry & Neurology Addiction Medicine | DX: F10.10 Alcohol abuse, uncomplicated (principal) ==

== ENCOUNTER → 2020-11-09 | Outpatient (CLI) | payer BC | LOC: M LABSMTC 11:00 | PROVIDERS: ATTEND Family Medicine | DX: Z11.52 Encounter for screening for COVID-19 (principal) ==

== ENCOUNTER 2020-11-22 15:17 | Outpatient (RCR) | payer BC | END 2020-11-27 | LOC: M OUTALCOH 15:17 | PROVIDERS: ATTEND Psychiatry & Neurology Addiction Medicine | DX: F10.10 Alcohol abuse, uncomplicated (principal) ==

== ENCOUNTER 2020-12-19 10:00 | Outpatient (RCR) | payer BC | END 2020-12-25 | LOC: M OUTALCOH 10:00 | PROVIDERS: ATTEND Psychiatry & Neurology Addiction Medicine | DX: F10.10 Alcohol abuse, uncomplicated (principal) ==

== ENCOUNTER 2021-01-16 10:00 | Outpatient (RCR) | payer BC | END 2021-01-25 | LOC: M OUTALCOH 10:00 | PROVIDERS: ATTEND Psychiatry & Neurology Psychiatry | DX: F10.10 Alcohol abuse, uncomplicated (principal) ==

== ENCOUNTER 2021-04-22 21:42 | Emergency (ER) | payer BC ==
[~2021-04-22] VITALS: Ht 157.5 cm; Wt 84.0 kg
[2021-04-22 21:42] VITALS: BP 141/93
== END 2021-04-23 01:10 | disposition left against medical advice (07) ==
LOC: M ED 21:42
DX: Z53.21 Procedure and treatment not carried out due to patient leaving prior to being seen by health care provider (principal)

== ENCOUNTER → 2021-07-07 | Outpatient (REF) | LOC: M LABSMTC 10:57 | PROVIDERS: ATTEND Pediatrics | DX: Z20.822 Contact with and (suspected) exposure to COVID-19 (principal) ==

== ENCOUNTER → 2021-08-10 | Outpatient (REF) | payer BC ==
[2021-08-10 16:55] LABS: HEMATOCRIT 35.7 % (36.0-47.0); MEAN CORPUSCULAR HEMOGLOBIN 30.2 pg (27.0-33.0); MEAN CORPUSCULAR HGB CONC 33.6 g/dl (32.0-36.5); MEAN CORPUSCULAR VOLUME 89.9 fl (80.0-96.0); PLATELET COUNT, AUTOMATED 211 10^3/uL (150-450); RED BLOOD COUNT 3.97 10^6/uL (4.00-5.40); WHITE BLOOD COUNT 7.1 10^3/uL (4.0-10.0)
[2021-08-10 17:53] LABS: HCG, SERUM QUANTITATIVE 16378 MIU/ML; HEPATITIS B SURFACE ANTIGEN NEGATIVE (NEGATIVE); HEPATITIS C VIRUS ABY INDEX < 0.0 INDEX (<0.8); HIV 1&2 SCREEN CENTAUR NEGATIVE (NEGATIVE)
== END ==
LOC: M LAB REF 16:14
PROVIDERS: ATTEND Obstetrics & Gynecology
DX: O36.80X0 Pregnancy with inconclusive fetal viability, not applicable or unspecified (principal); Z3A.00 Weeks of gestation of pregnancy not specified

== ENCOUNTER 2021-09-26 14:55 | Emergency (ER) | payer BC ==
[~2021-09-26] VITALS: Ht 154.9 cm; Wt 82.3 kg
[~2021-09-26 14:55] MED LIST changes: -SUMA6INJ16; +SUMA6INJ25
[2021-09-26 14:56] VITALS: BP 139/80
[2021-09-26] MEDS ORDERED: ONDA4TAB6 (15:20)
== END 2021-09-26 21:36 | disposition left against medical advice (07) ==
LOC: M ED 14:55
DX: Z53.21 Procedure and treatment not carried out due to patient leaving prior to being seen by health care provider (principal)

== ENCOUNTER → 2021-10-04 | Outpatient (REF) | payer BC ==
[~2021-10-04] MED LIST changes: +ONDA4TAB6; +SUMA6INJ16; -SUMA6INJ25
== END ==
LOC: M LAB REF 16:22
PROVIDERS: ATTEND Advanced Practice Midwife
DX: Z32.01 Encounter for pregnancy test, result positive (principal)

== ENCOUNTER → 2021-10-06 | Outpatient (REF) ==
[~2021-10-06] MED LIST changes: -SUMA6INJ16; +SUMA6INJ25
== END ==
LOC: M LABSMTC 11:14
PROVIDERS: ATTEND Family Medicine
DX: Z11.52 Encounter for screening for COVID-19 (principal); Z20.822 Contact with and (suspected) exposure to COVID-19

== ENCOUNTER → 2021-11-20 | Outpatient (REF) | payer BC ==
[2021-11-20 17:27] LABS: BASO % 0.3 % (0.0-1.0); EOS # 0.2 10^3/uL (0.0-0.5); HEMATOCRIT 31.5 % (36.0-47.0); HEMOGLOBIN 10.7 g/dl (12.0-15.5); LYMPH # 1.6 10^3/uL (1.5-5.0); LYMPH % 20.3 % (24.0-44.0); MEAN CORPUSCULAR HEMOGLOBIN 30.7 pg (27.0-33.0); MEAN CORPUSCULAR VOLUME 90.5 fl (80.0-96.0); MONO # 0.6 10^3/uL (0.0-0.8); MONO % 8.2 % (2.0-8.0); NEUTROPHILS # 5.3 10^3/uL (1.5-8.5); NEUTROPHILS % 67.9 % (36.0-66.0); PLATELET COUNT, AUTOMATED 207 10^3/uL (150-450); RED BLOOD COUNT 3.48 10^6/uL (4.00-5.40); WHITE BLOOD COUNT 7.9 10^3/uL (4.0-10.0)
== END ==
LOC: M LAB REF 16:14
PROVIDERS: ATTEND Advanced Practice Midwife
DX: Z34.82 Encounter for supervision of other normal pregnancy, second trimester (principal); Z3A.00 Weeks of gestation of pregnancy not specified

== ENCOUNTER → 2022-01-08 | Outpatient (CLI) | payer BC ==
[2022-01-08 12:45] LABS: HEMATOCRIT 30.4 % (36.0-47.0); HEMOGLOBIN 10.1 g/dl (12.0-15.5); MEAN CORPUSCULAR HEMOGLOBIN 30.5 pg (27.0-33.0); MEAN CORPUSCULAR HGB CONC 33.2 g/dl (32.0-36.5); MEAN CORPUSCULAR VOLUME 91.8 fl (80.0-96.0); PLATELET COUNT, AUTOMATED 198 10^3/uL (150-450); RED BLOOD COUNT 3.31 10^6/uL (4.00-5.40); WHITE BLOOD COUNT 8.1 10^3/uL (4.0-10.0)
== END ==
LOC: M WUC 08:41
PROVIDERS: ATTEND Obstetrics & Gynecology
DX: Z34.82 Encounter for supervision of other normal pregnancy, second trimester (principal); Z3A.00 Weeks of gestation of pregnancy not specified

== ENCOUNTER → 2022-01-12 | Outpatient (CLI) | payer BC, MEDICAID, SELFPAY | LOC: M LAB 08:15 | PROVIDERS: ATTEND Advanced Practice Midwife | DX: R73.02 Impaired glucose tolerance (oral) (principal) ==

== ENCOUNTER → 2022-03-01 | Outpatient (REF) | payer OTHER, MEDICAID | LOC: M LAB REF 12:30 | PROVIDERS: ATTEND Obstetrics & Gynecology | DX: Z36.85 Encounter for antenatal screening for Streptococcus B (principal) ==

== ENCOUNTER → 2023-02-14 | Outpatient (CLI) | payer OTHER, MEDICAID ==
[~2023-02-14] MED LIST changes: +ETON68IM SC; -NEXP1IMP SC; +PRENTAB9 PO
[2023-02-14 19:44] LABS: BASO % 0.3 % (0.0-1.0); EOS # 0.2 10^3/uL (0.0-0.5); EOS % 2.3 % (0.0-3.0); HEMATOCRIT 35.1 % (36.0-47.0); HEMOGLOBIN 11.7 g/dl (12.0-15.5); LYMPH # 1.3 10^3/uL (1.5-5.0); LYMPH % 17.7 % (24.0-44.0); MEAN CORPUSCULAR HEMOGLOBIN 28.8 pg (27.0-33.0); MEAN CORPUSCULAR HGB CONC 33.3 g/dl (32.0-36.5); MEAN CORPUSCULAR VOLUME 86.5 fl (80.0-96.0); MONO # 0.6 10^3/uL (0.0-0.8); MONO % 8.7 % (2.0-8.0); NEUTROPHILS # 5.2 10^3/uL (1.5-8.5); NEUTROPHILS % 70.5 % (36.0-66.0); PLATELET COUNT, AUTOMATED 217 10^3/uL (150-450); RED BLOOD COUNT 4.06 10^6/uL (4.00-5.40); WHITE BLOOD COUNT 7.4 10^3/uL (4.0-10.0)
== END ==
LOC: M WUC 15:10
PROVIDERS: ATTEND Nurse Practitioner Family
DX: R59.0 Localized enlarged lymph nodes (principal); L70.0 Acne vulgaris

== ENCOUNTER → 2023-03-20 | Outpatient (REF) | payer OTHER, MEDICAID, BC ==
[2023-03-20 12:53] LABS: HEMATOCRIT 31.4 % (36.0-47.0); HEMOGLOBIN 10.5 g/dl (12.0-15.5); MEAN CORPUSCULAR HEMOGLOBIN 29.1 pg (27.0-33.0); MEAN CORPUSCULAR HGB CONC 33.4 g/dl (32.0-36.5); PLATELET COUNT, AUTOMATED 178 10^3/uL (150-450); RED BLOOD COUNT 3.61 10^6/uL (4.00-5.40); WHITE BLOOD COUNT 6.8 10^3/uL (4.0-10.0)
[2023-03-20 13:17] LABS: HEPATITIS B SURFACE ANTIGEN NEGATIVE (NEGATIVE)
[2023-03-20 13:30] LABS: HIV 1&2 SCREEN NEGATIVE (NEGATIVE)
[2023-03-20 13:37] LABS: HEPATITIS C VIRUS ABY INDEX < 0.0 INDEX (<0.8)
== END ==
LOC: M LAB REF 12:06
PROVIDERS: ATTEND Obstetrics & Gynecology
DX: Z32.01 Encounter for pregnancy test, result positive (principal); O36.80X0 Pregnancy with inconclusive fetal viability, not applicable or unspecified

== ENCOUNTER → 2023-04-11 | Outpatient (CLI) | payer OTHER, MEDICAID, BC | LOC: M WUC 11:25 | PROVIDERS: ATTEND Obstetrics & Gynecology | DX: Z34.82 Encounter for supervision of other normal pregnancy, second trimester (principal); Z86.32 Personal history of gestational diabetes ==

== ENCOUNTER → 2023-04-16 | Outpatient (REF) | payer OTHER, MEDICAID, BC | LOC: M LAB REF 12:11 | PROVIDERS: ATTEND Obstetrics & Gynecology | DX: Z34.82 Encounter for supervision of other normal pregnancy, second trimester (principal) ==

== ENCOUNTER → 2023-05-22 | Outpatient (CLI) | payer OTHER, MEDICAID, BC | LOC: M WUC 09:27 | PROVIDERS: ATTEND Obstetrics & Gynecology | DX: Z34.82 Encounter for supervision of other normal pregnancy, second trimester (principal); Z3A.00 Weeks of gestation of pregnancy not specified ==

== ENCOUNTER → 2023-07-16 | Outpatient (CLI) | payer OTHER | LOC: M RAD 12:48 | PROVIDERS: ATTEND Obstetrics & Gynecology | DX: Z34.93 Encounter for supervision of normal pregnancy, unspecified, third trimester (principal); Z3A.35 35 weeks gestation of pregnancy ==

== ENCOUNTER 2023-08-13 18:45 | Inpatient (IN) | payer MEDICAID, OTHER ==
[~2023-08-13] VITALS: Ht 157.5 cm; Wt 84.5 kg
[2023-08-13] MEDS ORDERED: ACET325C5 PO (19:15)
[2023-08-13] MEDS ORDERED: TUMS500C PO (19:15)
[2023-08-13] MEDS ORDERED: HOME MED LIST COMPLETE! XX SCH (19:20)
[2023-08-13] MEDS ORDERED: LACTATED RINGER'S 1000 ML IV STA (19:29)
[2023-08-13] MEDS ORDERED: LR 1,000 ML IV SCH (19:30)
[2023-08-13] MEDS ORDERED: OXYTOCIN DRIP 30 UNITS in IV 1 EA IV PRN (19:30)
[2023-08-13] MEDS ORDERED: TRANEXAMIC ACID INJection 1,000 MG in NS 100 ML IV PRN (19:30)
[2023-08-13] MEDS ORDERED: METHYLERGONOVINE MALEATE 0.2MG/ML 1ML VIAL IM PRN (19:30)
[2023-08-13] MEDS ORDERED: CARBOPROST TROMETHAMINE 250 MCG/ML AMP IM PRN (19:30)
[2023-08-13] MEDS ORDERED: LIDOCAINE 1% MDV 20ML VIAL INFIL PRN (19:30)
[2023-08-13 19:56] VITALS: BP 124/84
[2023-08-13 20:13] LABS: HEMOGLOBIN 8.4 g/dl (12.0-15.5); MEAN CORPUSCULAR HEMOGLOBIN 23.2 pg (27.0-33.0); MEAN CORPUSCULAR HGB CONC 31.1 g/dl (32.0-36.5); MEAN CORPUSCULAR VOLUME 74.6 fl (80.0-96.0); PLATELET COUNT, AUTOMATED 181 10^3/uL (150-450); RED BLOOD COUNT 3.62 10^6/uL (4.00-5.40)
[2023-08-13] MEDS: miSOPROStol 50MCG 1/2 TABLET SL SCH (20:18)
[2023-08-13 20:21] VITALS: BP 131/91
[2023-08-13 20:31] LABS: GLUCOSE,RANDOM 125 MG/DL (LESS THAN 200)
[2023-08-13 21:34] VITALS: BP 136/85
[2023-08-13 22:20] VITALS: BP 138/81
[2023-08-13 23:22] VITALS: BP 129/70
[2023-08-14] VITALS (20 sets, daily range): BP systolic 100–162; BP diastolic 55–94; O2SAT 97–98
[2023-08-14] MEDS: miSOPROStol 50MCG 1/2 TABLET SL SCH (01:48)
[2023-08-14] MEDS ORDERED: LR 500 ML IV PRN (07:10)
[2023-08-14] MEDS ORDERED: ePHEDrine SULFATE 25 MG/5 ML(5MG/ML) SYRINGE IVP PRN (07:10)
[2023-08-14] MEDS ORDERED: ONDANSETRON 4MG 2ML VIAL IV PRN (07:10)
[2023-08-14] MEDS ORDERED: NALOXONE INJ 0.4MG/1ML VIAL IV PRN (07:10)
[2023-08-14] MEDS ORDERED: EPIDURAL/PCA KEYS XX PRN (07:10)
[2023-08-14] MEDS ORDERED: FENTANYL/ROPIVACAINE/NACL BAG 100 ML EPIDURAL SCH (07:10)
[2023-08-14] MEDS ORDERED: diphenhydrAMINE 50MG/ML VIAL IV PRN (07:10)
[2023-08-14 08:42] LABS: CORD GAS ABE V -4.6; CORD GAS HCO3 V 21.9 MMOL/L; CORD GAS O2 SAT V 44.7 %; CORD GAS PCO2 V 45.1 mmHg; CORD GAS PH V 7.304 UNITS; CORD GAS PO2 V 19.7 mmHg; CORD GAS SBC V 19.4 MMOL/L; CORD GAS TCO2 V 23.3 MMOL/L
[2023-08-14 08:42] LABS: CORD GAS ABE A -7.6; CORD GAS HCO3 A 23.1 MMOL/L; CORD GAS O2 SAT A 41.1 %; CORD GAS PCO2 A 68.6 mmHg; CORD GAS PH A 7.146 UNITS; CORD GAS PO2 A 21.8 mmHg; CORD GAS TCO2 A 25.3 MMOL/L
[2023-08-14] MEDS ORDERED: METHYLERGONOVINE MALEATE 0.2 MG TAB PO PRN (09:00)
[2023-08-14] MEDS ORDERED: RHOGAM 300MCG (1500IU) INJ IM SCH (09:00)
[2023-08-14] MEDS ORDERED: DOCUSATE SODIUM 100MG CAPSULE PO PRN (09:00)
[2023-08-14] MEDS ORDERED: OXYTOCIN DRIP 30 UNITS in IV 1 EA IV SCH (09:00)
[2023-08-14] MEDS ORDERED: IBUPROFEN 600MG TAB PO PRN (09:00)
[2023-08-14] MEDS ORDERED: ACETAMINOPHEN TAB 650MG DOSE (2X325MG) PO PRN (09:00)
[2023-08-14] MEDS ORDERED: DIBUCAINE 1% OINTMENT 30GM TOP PRN (09:00)
[2023-08-14] MEDS: PRENATAL VITAMINS CHEWABLE TABLET PO SCH (11:05)
[2023-08-14] MEDS: IBUPROFEN 800 MG TAB PO PRN ×2 (12:00→19:31)
[2023-08-14] MEDS ORDERED: BOOSTRIX VACCINE (TETANUS/DIPHTH/ACEL. PERTUSSIS) 0.5ML SYR IM.IMMUN ONE (15:00)
[2023-08-14] MEDS: ACETAMINOPHEN 500 MG TAB PO PRN (18:10)
[2023-08-15] MEDS: ACETAMINOPHEN 500 MG TAB PO PRN (00:33)
[2023-08-15 06:00] VITALS: BP 104/55; O2SAT 99
[2023-08-15] MEDS: PRENATAL VITAMINS CHEWABLE TABLET PO SCH (08:16)
[2023-08-15] MEDS ORDERED: BOOSTRIX VACCINE (TETANUS/DIPHTH/ACEL. PERTUSSIS) 0.5ML SYR IM.IMMUN ONE (09:00)
[2023-08-15] MEDS: IBUPROFEN 800 MG TAB PO PRN (09:11)
[2023-08-15] MEDS ORDERED: IBUP80TA PO (10:48)
[2023-08-15] MEDS ORDERED: INFLUENZA QUADRIVALENT PF VACCINE 0.5ML SYRINGE IM.IMMUN ONE (14:00)
[2023-08-16] MEDS ORDERED: MEASLES,MUMPS,RUBELLA VACCINE INJ (MMR-II) SC.IMMUN ONE (09:00)
== END 2023-08-15 14:35 | disposition home or self-care (01) | DRG 560 ==
LOC: M LDI 18:45 → M OBS 08-14 10:47
PROVIDERS: ADMIT Obstetrics & Gynecology; ATTEND Obstetrics & Gynecology
PROC: 3E033VJ Introduction of Other Hormone into Peripheral Vein, Percutaneous Approach (ICD-10-PCS; 2023-08-13)
PROC: 3E0P7VZ Introduction of Hormone into Female Reproductive, Via Natural or Artificial Opening (ICD-10-PCS; 2023-08-13)
PROC: 10E0XZZ Delivery of Products of Conception, External Approach (ICD-10-PCS; principal; 2023-08-14)
PROC: 0HQ9XZZ Repair Perineum Skin, External Approach (ICD-10-PCS; 2023-08-14)
DX: O24.429 Gestational diabetes mellitus in childbirth, unspecified control (principal); Z37.0 Single live birth; Z3A.39 39 weeks gestation of pregnancy; Z88.8 Allergy status to other drugs, medicaments and biological substances; O66.0 Obstructed labor due to shoulder dystocia; O69.82X0 Labor and delivery complicated by other cord entanglement, without compression, not applicable or unspecified; O70.0 First degree perineal laceration during delivery